=== PATIENT | female | born 1930 | race Caucasian/White ===

== ENCOUNTER 2016-05-21 14:48 | Emergency (ER) | payer OTHER ==
[2016-05-21] MEDS ORDERED: ASPIRIN PO STA (14:51)
[2016-05-21 14:56] VITALS: BP 169/91
--- NOTE | 2016-05-21 15:00 | EKG Report ---
Test Performed on : 05/21/2016 2:50:15 PM Test Reason : CP Blood Pressure : / mmHG Vent. Rate : 069 BPM Atrial Rate : 069 BPM P-R Int : 126 ms QRS Dur : 078 ms QT Int : 384 ms P-R-T Axes : 011 -19 055 degrees QTc Int : 411 ms Normal sinus rhythm. Low voltage QRS Cannot rule out Anterior infarct , age undetermined Abnormal ECG When compared with ECG of 23-SEP-2015 12:06, Minimal criteria for Anterior infarct are now present Nonspecific T wave abnormality, worse in Lateral leads Unconfirmed Result
--- NOTE | 2016-05-21 15:00 | ED EKG INTERP ---
EKG Interpretation - EKG Time of EKG reading by physician:: 14:50 EKG Read and Signed by:: Antoni Teixeira EKG Interpretation (*Must complete 3 of following elements*): Normal Rate: 69 Rhythm: normal sinus rhythm [place]: normal
[2016-05-21 15:59] LABS: MANUAL DIFF NEEDED? NO
[2016-05-21 16:01] LABS: BASO% 0.2 % (0.0-0.8); EOS# 0.09 X1000 (0.0-0.7); EOS% 1.4 % (0.0-10.0); HEMATOCRIT 39.8 % (37.0-47.0); HEMOGLOBIN 12.7 g/dL (12.0-16.0); IMM GRAN# 0.01 X1000 (0.0-0.04); IMM GRAN% 0.2 % (0.0-0.5); LYMPH% 27.4 % (20.5-51.1); MCH 31.1 PG (27-31); MCHC 31.9 g/dL (33-37); MCV 97.3 FL (81-99); MONO# 0.59 X1000 (0.11-0.59); NEUT% 61.8 % (42.2-75.2); PLT 242 X1000 (130-400); RBC 4.09 XMIL (4.2-5.4)
[2016-05-21 16:16] LABS: ALBUMIN 4.2 g/dL (3.5-5.0); CALCIUM 11.1 mg/dL (8.8-10.2); MAGNESIUM 2.2 mg/dL (1.5-2.7); POTASSIUM 3.9 mmol/L (3.5-5.1); TOTAL BILIRUBIN 0.4 mg/dL (0.20-1.00); TOTAL PROTEIN 7.1 g/dL (6.3-8.3)
[2016-05-21 16:20] LABS: INR 0.89 (0.86-1.15); PROTIME 12.4 Seconds (12.1-15.5); PTT PL 29.9 Seconds (22.6-43.9)
--- NOTE | 2016-05-21 17:16 | ED EKG INTERP ---
EKG Interpretation - EKG Time of EKG reading by physician:: 16:56 EKG Read and Signed by:: Antoni Teixeira EKG Interpretation (*Must complete 3 of following elements*): Normal Rate: 64 Rhythm: normal sinus rhythm [place]: normal
[2016-05-21 17:18] LABS: AMYLASE 25 U/L (20-200); LIPASE 25 U/L (13-60)
--- NOTE | 2016-05-21 17:34 | EKG Report ---
Test Performed on : 05/21/2016 4:56:32 PM Test Reason : chest pain Blood Pressure : / mmHG Vent. Rate : 064 BPM Atrial Rate : 064 BPM P-R Int : 148 ms QRS Dur : 078 ms QT Int : 408 ms P-R-T Axes : 075 -27 067 degrees QTc Int : 420 ms Normal sinus rhythm. Low voltage QRS Cannot rule out Anterior infarct (cited on or before 21-MAY-2016) Abnormal ECG When compared with ECG of 21-MAY-2016 14:50, (Unconfirmed) Nonspecific T wave abnormality no longer evident in Lateral leads Unconfirmed Result
--- NOTE | 2016-05-21 18:00 | PROVIDER DOCUMENTATION ---
HPI-Chest Pain - General Chief Complaint: Chest Pain Stated Complaint: CHEST PAINS, THROWING UP Time Seen by Provider: 05/21/16 16:34 Source: patient, family Allergies/Adverse Reactions: Patient Allergies Allergy/AdvReac Type Severity Reaction Status Date / Time Iodinated Contrast Media - Allergy Intermediate ITCHING Verified 05/21/16 14:56 Oral and Home Medications: Home Medication List Medication Instructions Recorded Confirmed Last Taken Type ATORVAstatin [Lipitor] 80 mg PO HS 09/23/15 09/23/15 Unknown History Aspirin [Aspirin EC] 81 mg PO DAILY 09/23/15 09/23/15 Unknown History Cholecalciferol (Vitamin D3) 1,000 unit PO DAILY 09/23/15 09/23/15 Unknown History [Vitamin D3] Cyanocobalamin (Vitamin B-12) 1,000 mcg IM ONCE 09/23/15 09/23/15 09/01/15 History [Cyanocobalamin Injection] Furosemide 40 mg PO DAILY 09/23/15 09/23/15 Unknown History Hydrocodone/Acetaminophen [[place] 1 each PO Q8H PRN PRN 09/23/15 09/23/15 Unknown History 10-325 Tablet] Isosorbide Mononitrate E.r. [Imdur] 60 mg PO QAM 09/23/15 09/23/15 Unknown History Levothyroxine Sodium 112 mcg PO DAILY 09/23/15 09/23/15 Unknown History Loratadine 10 mg PO DAILY 09/23/15 09/23/15 Unknown History Meloxicam 7.5 mg PO DAILY 09/23/15 09/23/15 Unknown History Metformin HCl [Metformin HCl ER] 500 mg PO BID 09/23/15 09/23/15 Unknown History Metoprolol Succinate E.r. [Toprol 25 mg PO DAILY 09/23/15 09/23/15 Unknown History Xl] Metoprolol Succinate E.r. [Toprol 50 mg PO DAILY 09/23/15 09/23/15 Unknown History Xl] Mv, Min Cmb#22/Lut/Om3/Dha/Epa 1 cap PO BID 09/23/15 09/23/15 Unknown History [Tozal Softgel] Nitroglycerin [Nitrostat] 0.4 mg SL PRN PRN 09/23/15 09/23/15 Unknown History Non-Formulary Med 6 mg PO TID 09/23/15 09/23/15 Unknown History Omeprazole 40 mg PO DAILY 09/23/15 09/23/15 Unknown History Ranolazine E.r. [Ranexa] 500 mg PO BID 09/23/15 09/23/15 Unknown History - History of Present Illness-CP Nature of Presenting Problem: 85 year old WF presents with c/o epigastric pain, burning in nature, radiating to the lower abdomen. pt reports the pain started at 1400 today, lasted seconds in duration, then resolved. pt reports the pain is now resolved and has not resumed since that initial episode at 1400. pt reports associated nausea, no vomiting, denies diaphoresis. pt reports she can reproduce the pain with deep inspiration. Location: reports: epigastric Chest Pain Radiation: reports: other (lower abdomen) Quality of Pain: reports: burning Severity in ED: mild Onset/Duration: 1 hour ago Timing: gone now, resolved prior to arrival Context/Activities at Onset: reports: none Modifying Factors: improves with: nothing Associated Symptoms: reports: abdominal pain, nausea, shortness of breath. denies: back pain, diaphoresis, dizziness, edema, fatigue, fever/chills, headache, heartburn, rash, swelling/lump in chest, syncope, vomiting, weakness Nitro Today/Relief: no nitro taken today Aspirin Treatment Today: no aspirin today Prior Chest Pain/Cardiac Workup: reports: cardiac cath, heart attack Similar Symptoms Previously?: Yes Recently Seen Here or By Another Healthcare Provider: No Review of Systems - Adult - REVIEW OF SYSTEMS - ADULT Constitutional: reports: no symptoms reported. denies: chills, fever, [place] Eyes: reports: no symptoms reported. denies: discharge, blurred vision, double vision, redness Ears, Nose, Mouth & Throat: reports: no symptoms reported. denies: ear discharge, ear pain, nose pain, loose teeth, throat pain, throat swelling Cardiovascular: reports: see HPI, chest pain. denies: edema, heart murmur, irregular heart rate, orthopnea, palpitations, poor circulation, PND, syncope Respiratory: reports: no symptoms reported. denies: chronic cough, cough, dyspnea on exertion, hemoptysis, pleurisy, shortness of breath, wheezing Gastrointestinal: reports: see HPI, abdominal pain Genitourinary: reports: no symptoms reported. denies: dysuria, hematuria, urgency Musculoskeletal: reports: no symptoms reported. denies: bone pain, joint pain, joint swelling, neck pain Integumentary: reports: no symptoms reported. denies: hives, itching, rash, skin sores/ulcer Neurological: reports: no symptoms reported Psychiatric: reports: no symptoms reported Endocrine: reports: no symptoms reported Hematologic/Lymphatic: reports: no symptoms reported Allergic/Immunologic: reports: no symptoms reported All Other Systems: Reviewed and Negative Past History - Adult - PAST MEDICAL HISTORY-ADULT Review of Records: reports: Old Records Reviewed, Nursing Assessment Review, Medications Reviewed, Social history reviewed & non-contributory. Major Childhood Illnesses: reports: denies history Cardiovascular: reports: CAD, HTN Respiratory: reports: asthma Gastrointestinal: reports: cancer (colon) Obstetrical/Gynecological: reports: denies history Genitourinary: reports: denies history Musculoskeletal: reports: denies history Neurological: reports: denies history Endocrine/Immune: reports: Diabetes, thyroid disorder (hypothyroid) Other Conditions: reports: denies history - PRIOR SURGERIES/PROCEDURES Surgical/Procedure History: reports: appendectomy, CABG, cholecystectomy, hysterectomy, back/neck (back sx), gastric bypass - IMMUNIZATION STATUS Childhood Immunizations: See Nurse Assessment Flu Vaccine: See Nurse Assessment - FAMILY HISTORY Family History: reviewed, not pertinent - SOCIAL HISTORY Smoking: denies, non-smoker Substance Use: none/never Alcohol Use Frequency: never Physical Exam-General - PHYSICAL EXAM-ADULT Initial Vital Signs Reviewed: Yes - CONSTITUTIONAL General Appearance: appears well, alert, no apparent distress. negative: mild distress, moderate distress, severe distress, lethargic, slow to respond, obtunded, combative - EYES Eyes: pink conjunctivae. negative: conjuctival exudate, pale conjunctivae, photophobia, sclera injected, scleral icterus - HEAD, EARS, NOSE, MOUTH & THROAT HENMT: normocephalic/atraumatic, moist mucous membranes, normal ENT inspection. negative: TMs normal, pharynx normal - NECK Neck: non-tender, full range of motion, supple, normal inspection. negative: C- spine tenderness, limited range of motion, tender lateral, tender midline - RESPIRATORY Respiratory: chest non-tender, lungs clear, normal breath sounds, no pleuratic chest pain, no respiratory distress, no accessory muscle use. negative: respiratory distress, decreased breath sounds, accessory muscle use, crackles, rales, rhonchi, stridor, wheezing - CARDIOVASCULAR Cardiovascular: normal peripheral pulses, regular rate, rhythm, no edema, no gallop - CHEST (BREASTS) Chest/Breast: tenderness (pain with deep inspiration) - GASTROINTESTINAL (ABDOMEN) Abdominal Exam: normal bowel sounds, non tender, soft, no organomegaly. negative: distended, guarding, rigid, rebound, tenderness, hernia, mass, hepatomegaly, spleenomegaly, McBurney's point tenderness, Lepe's sign, obturator sign, prominent aortic pulsations, psoas, Rovsing's sign - GENITOURINARY Female Genitalia/Pelvic Exam: deferred Rectal Exam: deferred Hemoccult Exam: deferred - LYMPHATIC Lymphatic: no adenopathy - MUSCULOSKELETAL Back Exam: normal inspection, no CVA tenderness, no vertebral tenderness. negative: CVA tenderness, decreased range of motion, swelling, vertebral tenderness Extremity: normal range of motion, non-tender, normal gait, normal inspection, no pedal edema, no calf tenderness, normal capillary refill. negative: deformity, erythema, inflammation, joint effusion, pedal edema, slow capillary refill Peripheral Pulses: radial (R): 3+, radial (L): 3+, dorsalis-pedis (R): 3+, dorsalis-pedis (L): 3+ - SKIN Integumentary: normal color, normal turgor, warm/dry - NEUROLOGIC Neurologic: grossly normal, no motor/sensory deficits - PSYCHIATRIC Psych/Mental Status: normal mood/affect, normal thought content, normal thought process, oriented x 3 Progress - PLAN OF CARE/RESULTS Progress/Plan/Lab Results: Laboratory Tests 05/21/16 05/21/16 05/21/16 15:40 15:40 15:40 WBC RBC Hgb Hct MCV MCH MCHC RDW Std Deviation Plt Count MPV Immature Gran % (Auto) Neut % (Auto) Lymph % (Auto) [place] % (Auto) Eos % (Auto) Baso % (Auto) Immature Gran # (Auto) Neut # (Auto) Lymph # (Auto) [place] # (Auto) Eos # (Auto) Baso # (Auto) PT INR APTT (Factor Assay) Sodium 137 Potassium 3.9 Chloride 98 Carbon Dioxide 29 Anion Gap 10 BUN 25 H Creatinine 1.3 H Estimated GFR/1.73 m2 39 BUN/Creatinine Ratio 19 Glucose 124 H Calculated Osmolality 280 Calcium 11.1 H Magnesium 2.2 Total Bilirubin 0.40 AST 19 ALT 17 Alkaline Phosphatase 55 Creatine Kinase 65 Troponin T < 0.010 Emt-[id number]-Wvzksgsapot Pept 486 H Total Protein 7.1 Albumin 4.2 Globulin 3.0 Albumin/Globulin Ratio 1.0 Amylase Lipase 05/21/16 05/21/16 05/21/16 15:40 15:40 16:30 WBC 6.58 RBC 4.09 L Hgb 12.7 Hct 39.8 MCV 97.3 MCH 31.1 H MCHC 31.9 L RDW Std Deviation 14.4 Plt Count 242 MPV 10.0 Immature Gran % (Auto) 0.2 Neut % (Auto) 61.8 Lymph % (Auto) 27.4 [place] % (Auto) 9.0 Eos % (Auto) 1.4 Baso % (Auto) 0.2 Immature Gran # (Auto) 0.01 Neut # (Auto) 4.08 Lymph # (Auto) 1.80 [place] # (Auto) 0.59 Eos # (Auto) 0.09 Baso # (Auto) 0.01 PT 12.4 INR 0.89 APTT (Factor Assay) 29.9 Sodium Potassium Chloride Carbon Dioxide Anion Gap BUN Creatinine Estimated GFR/1.73 m2 BUN/Creatinine Ratio Glucose Calculated Osmolality Calcium Magnesium Total Bilirubin AST ALT Alkaline Phosphatase Creatine Kinase Troponin T Lsx-C-Prvjzgshjir Pept Total Protein Albumin Globulin Albumin/Globulin Ratio Amylase 25 Lipase 25 05/21/16 05/21/16 17:57 17:57 WBC RBC Hgb Hct MCV MCH MCHC RDW Std Deviation Plt Count MPV Immature Gran % (Auto) Neut % (Auto) Lymph % (Auto) [place] % (Auto) Eos % (Auto) Baso % (Auto) Immature Gran # (Auto) Neut # (Auto) Lymph # (Auto) [place] # (Auto) Eos # (Auto) Baso # (Auto) PT INR APTT (Factor Assay) Sodium Potassium Chloride Carbon Dioxide Anion Gap BUN Creatinine Estimated GFR/1.73 m2 BUN/Creatinine Ratio Glucose Calculated Osmolality Calcium Magnesium Total Bilirubin AST ALT Alkaline Phosphatase Creatine Kinase 65 Troponin T < 0.010 Uye-[id number]-Vhgkkzdbpkl Pept Total Protein Albumin Globulin Albumin/Globulin Ratio Amylase Lipase Orders Category Date Time Status Cardiac Monitoring DIRECTED Care 05/21/16 14:51 Active Oxygen Therapy- ED Nursing DIRECTED Care 05/21/16 14:51 Active Saline Loc NOW Care 05/21/16 14:51 Active ABDOMEN FLAT/UPRIGHT [RAD] Stat Exams 05/21/16 18:01 Completed CHEST-2 VIEWS [RAD] Stat Exams 05/21/16 14:51 Completed AMYLASE [CHEM] Stat Lab 05/21/16 16:30 Completed CBC WITH ELECTRONIC DIFF [HEME] Stat Lab 05/21/16 15:40 Completed CK PROFILE [SP CHEM] Stat Lab 05/21/16 15:40 Completed CK PROFILE [SP CHEM] Stat Lab 05/21/16 17:57 Completed COMPREHENSIVE METABOLIC PANEL [CHEM] Stat Lab 05/21/16 15:40 Completed LIPASE [CHEM] Stat Lab 05/21/16 16:30 Completed MAGNESIUM [CHEM] Stat Lab 05/21/16 15:40 Completed PRO B-NATRIURETIC PEPTIDE Stat Lab 05/21/16 15:40 Completed PROTIME WITH INR PL [COAG] Stat Lab 05/21/16 15:[address] [COAG] Stat Lab 05/21/16 15:40 Completed TROPONIN T Stat Lab 05/21/16 15:40 Completed TROPONIN T Stat Lab 05/21/16 17:57 Completed Aspirin Med 05/21/16 14:51 Discontinued 325 mg PO STAT STA Aerosol Treatments Routine Oth 05/21/16 16:00 Completed EKG [EKG] Stat Ther 05/21/16 14:51 Draft EKG [EKG] Stat Ther 05/21/16 16:46 Draft Reviewed case with Dr. Teixeira, agrees with plan of care and dc home. - XRAY 1 XRAY Study: Chest Impression: Normal (per Dr. Teixeira) 2 XRAY Study: Abdomen Impression: Abnormal (constipation.) Departure - Departure Time of Disposition Order: 19:12 DIAGNOSIS: Epigastric pain Constipation Qualifiers: Constipation type: unspecified constipation type Qualified Code(s): K59.00 - Constipation, unspecified Vomiting Qualifiers: Nausea presence: with nausea Disposition: HOME 01 Certified Medical Emergency: Emergent Condition: Stable Additional Instructions: Follow up with your primary care doctor tomorrow as scheduled. Start taking your miralax again for constipation. ED Follow Up Instructions: You have been treated by a care provider in the Emergency Department. These instructions are being provided to you so you can have an understanding of how to care for yourself upon discharge. Upon discharge from the Emergency Department, you are responsible for making arrangements for follow-up care by a physician of your choice. Take all prescribed medications as directed. Return to the Emergency Department immediately for any new or worsening symptoms. You may call the Physician Referral phone number at [phone] to obtain a list of Physicians who are taking new patients. Referrals: Cyril Prescott MD [STAFF PHYSICIAN] - Instructions: Constipation, Adult Attestation - Physician/ KOMAL Attestation Patient care was provided by Advanced Practice Provider:: Yes Advanced Practice Provider:: Iliana Whiteside Advanced Practice Provider documentation review:: The Mid-level provider documentation, treatment plan and medical decision making was reviewed by the physician who agrees with all treatment and medical decision making by the MLP.
--- NOTE | 2016-05-21 18:02 | Diag Imaging Result Document ---
PROCEDURE NAME: CHEST-2 VIEWS - 05/21/2016 CHEST, 2 VIEWS: FINDINGS: Compared to 09/23/2015. Heart size is normal. There are sternal wires from previous surgery again seen. There is mild tortuosity of the thoracic aorta. There is a small granuloma from old granulomatous disease at the left upper lobe which is stable. There are no acute changes identified. There is no consolidation, pleural effusion, or pneumothorax identified. IMPRESSION: No evidence of acute disease.
--- NOTE | 2016-05-21 19:48 | Diag Imaging Result Document ---
PROCEDURE NAME: ABDOMEN FLAT/UPRIGHT - 05/21/2016 FLAT AND UPRIGHT, 2 VIEWS: COMPARISON: Compared to 11/07/2010. There are multiple surgical clips scattered throughout the abdomen. Stool is found throughout the colon. The bowel loops are not dilated. No organomegaly. Moderate atherosclerosis. There are several pelvic calcifications consistent with phleboliths. There is scoliosis with degenerative spine changes. IMPRESSION: Constipation.
== END 2016-05-21 19:39 | disposition home or self-care (01) ==
LOC: P.ED 14:48
DX: R10.13 Epigastric pain (principal); K59.00 Constipation, unspecified; R11.2 Nausea with vomiting, unspecified; R06.02 Shortness of breath; R07.9 Chest pain, unspecified; I25.10 Atherosclerotic heart disease of native coronary artery without angina pectoris; I10 Essential (primary) hypertension; Z85.038 Personal history of other malignant neoplasm of large intestine; Z79.899 Other long term (current) drug therapy; E11.9 Type 2 diabetes mellitus without complications; E03.9 Hypothyroidism, unspecified; Z95.1 Presence of aortocoronary bypass graft; Z98.84 Bariatric surgery status; Z79.82 Long term (current) use of aspirin
CPT/HCPCS: 71020; 74020; 80053; 82150; 82550; 83690; 83735; 83880; 84484; 85025; 85610; 85730; 93005; 94640; 94761; 99284

== ENCOUNTER 2018-06-21 15:21 | Inpatient (IN) ==
[2018-06-21] MEDS ORDERED: ASPIRIN PO ONE (15:59)
--- NOTE | 2018-06-21 16:22 | PROVIDER DOCUMENTATION ---
HPI-Chest Pain - General Chief Complaint: Epigastric Pain Stated Complaint: CHEST PAIN Time Seen by Provider: 06/21/18 15:49 Source: patient Allergies/Adverse Reactions: Patient Allergies Allergy/AdvReac Type Severity Reaction Status Date / Time Iodinated Contrast- Oral and Allergy Intermediate ITCHING Verified 08/15/17 23:24 IV Dye Home Medications: Home Medication List Medication Instructions Recorded Confirmed Last Taken Type Isosorbide Mononitrate E.r. [Imdur] 60 mg PO QAM 09/23/15 02/23/18 Unknown History Levothyroxine Sodium [Synthroid] 88 mcg PO HS 02/23/18 02/23/18 Unknown History Metoprolol Tartrate 25 mg PO BID 02/23/18 02/23/18 Unknown History Pantoprazole Sodium [Protonix] 20 mg PO BID 02/23/18 02/23/18 Unknown History Ranolazine E.r. [Ranexa] 500 mg PO BID 02/23/18 02/23/18 Unknown History Solifenacin Succinate [Vesicare] 10 mg PO HS 02/23/18 02/23/18 Unknown History Acetaminophen [Tylenol] 650 mg PO Q6H PRN PRN tablet 02/28/18 Unknown Rx Lidocaine 5% Patch [Lidoderm] 1 each TOP DAILY patch 02/28/18 Unknown Rx - History of Present Illness-CP Nature of Presenting Problem: 88yof present to ER with c/o CP onset approx midnight. Pt reports some SOB and n/v at onset. Pt denies pain at present. States pain is worse with lying down. Pt poor historian, reports a CABG in 1992. Location: reports: substernal Chest Pain Radiation: reports: back Quality of Pain: reports: sharp, stabbing Onset/Duration: last night Timing: gone now, intermittent Modifying Factors: worse with: lying down Associated Symptoms: reports: back pain, nausea, shortness of breath, vomiting. denies: diaphoresis, fever/chills, syncope Nitro Today/Relief: no nitro taken today Review of Systems - Adult - REVIEW OF SYSTEMS - ADULT Constitutional: reports: no symptoms reported. denies: chills, fever Eyes: reports: no symptoms reported Ears, Nose, Mouth & Throat: reports: no symptoms reported Cardiovascular: reports: see HPI, chest pain, orthopnea. denies: palpitations, syncope Respiratory: reports: see HPI, shortness of breath Gastrointestinal: reports: nausea, vomiting. denies: abdominal pain, diarrhea Genitourinary: reports: no symptoms reported Musculoskeletal: reports: back pain (upper) Integumentary: reports: no symptoms reported Neurological: reports: no symptoms reported Psychiatric: reports: no symptoms reported Endocrine: reports: no symptoms reported Hematologic/Lymphatic: reports: no symptoms reported Allergic/Immunologic: reports: no symptoms reported All Other Systems: Reviewed and Negative Past History - Adult - PAST MEDICAL HISTORY-ADULT Review of Records: reports: Old Records Reviewed, Nursing Assessment Review, Medications Reviewed Major Childhood Illnesses: reports: denies history Cardiovascular: reports: CAD, CHF, HTN, hyperlipidemia Respiratory: reports: asthma, COPD Gastrointestinal: reports: cancer (colon) Obstetrical/Gynecological: reports: denies history Genitourinary: reports: denies history Musculoskeletal: reports: denies history Neurological: reports: denies history Endocrine/Immune: reports: Diabetes, thyroid disorder (hypothyroid) Other Conditions: reports: denies history - PRIOR SURGERIES/PROCEDURES Surgical/Procedure History: reports: appendectomy, CABG, cholecystectomy, hysterectomy, back/neck (back sx), gastric bypass - IMMUNIZATION STATUS Childhood Immunizations: See Nurse Assessment Flu Vaccine: See Nurse Assessment - FAMILY HISTORY Family History: reviewed, not pertinent Physical Exam-General - PHYSICAL EXAM-ADULT Initial Vital Signs Reviewed: Yes - CONSTITUTIONAL General Appearance: alert, no apparent distress - EYES Eyes: PERRL/EOMI, pink conjunctivae - HEAD, EARS, NOSE, MOUTH & THROAT HENMT: moist mucous membranes, normal ENT inspection - NECK Neck: non-tender, full range of motion, supple, normal inspection - RESPIRATORY Respiratory: chest non-tender, lungs clear, normal breath sounds, no pleuratic chest pain, no respiratory distress, no accessory muscle use - CARDIOVASCULAR Cardiovascular: regular rate, rhythm, no edema - GASTROINTESTINAL (ABDOMEN) Abdominal Exam: normal bowel sounds, non tender, soft. negative: distended, guarding, rigid, rebound - LYMPHATIC Lymphatic: no adenopathy - MUSCULOSKELETAL Back Exam: normal inspection, no CVA tenderness, no vertebral tenderness Extremity: normal range of motion, normal inspection, normal capillary refill - SKIN Integumentary: normal color, warm/dry - NEUROLOGIC Neurologic: grossly normal, no motor/sensory deficits - PSYCHIATRIC Psych/Mental Status: normal mood/affect - HEART Score HEART Score: History: Moderately Suspicious HEART Score: ECG: Normal HEART Score: Age: > or = 65 Years HEART Score: Risk Factors for Atherosclerotic Disease: > or = 3 Risk Factors or History of Atherosclerotic Disease HEART Score: Troponin: < or = Normal Limit Total HEART Score:: 5 Progress - PLAN OF CARE/RESULTS Progress/Plan/Lab Results: Vital Signs - 8 hr 06/21/18 15:31 Temperature 99.0 F Pulse Rate 66 Respiratory Rate 19 Blood Pressure 96/68 O2 Sat by Pulse Oximetry 98 Laboratory Results - last 24 hr 06/21/18 06/21/18 16:15 16:15 WBC 7.61 RBC 3.70 L Hgb 11.9 L Hct 36.6 L MCV 98.9 MCH 32.2 H MCHC 32.5 L RDW Std Deviation 13.8 Plt Count 195 MPV 9.9 Immature Gran % (Auto) 0.1 Neut % (Auto) 65.0 Lymph % (Auto) 22.2 [place] % (Auto) 10.4 H Eos % (Auto) 2.0 Baso % (Auto) 0.3 Immature Gran # (Auto) 0.01 Neut # (Auto) 4.95 Lymph # (Auto) 1.69 [place] # (Auto) 0.79 H Eos # (Auto) 0.15 Baso # (Auto) 0.02 PT 13.1 INR 0.94 PTT (Actin FS) 30.8 Orders Category Date Time Status Nursing- Obtain EKG ONCE Care 06/21/18 15:50 Active CHEST-2 VIEWS [RAD] Stat Exams 06/21/18 15:50 Ordered CBC WITH DIFF [HEME] Stat Lab 06/21/18 16:15 Completed COMPREHENSIVE METABOLIC PANEL [CHEM] Stat Lab 06/21/18 16:15 Received D-DIMER [COAG] Stat Lab 06/21/18 16:15 Results LIPASE [CHEM] Stat Lab 06/21/18 16:15 Received PRO B-NATRIURETIC PEPTIDE Stat Lab 06/21/18 16:15 Received PROTIME WITH INR [COAG] Stat Lab 06/21/18 16:15 Results PTT [COAG] Stat Lab 06/21/18 16:15 Results TROPONIN T Stat Lab 06/21/18 16:15 Received Aspirin Med 06/21/18 15:59 Discontinued 325 mg PO NOW ONE Famotidine [Pepcid] Med 06/21/18 16:24 Discontinued 20 mg IV NOW ONE Lido/Brower Alk/Al&mg Hydrox [G.i. Cocktail] Med 06/21/18 16:24 Discontinued 30 ml PO NOW ONE Sodium Chloride 0.9% Med 06/21/18 16:24 Discontinued 5 - 10 ml INJ NOW ONE EKG [EKG] Stat Ther 06/21/18 15:50 Ordered Result Diagrams: 06/21/18 16:15 06/21/18 16:15 - EKG 1 Time of EKG reading by physician:: 15:27 EKG Read and Signed by:: Tom Lund EKG Interpretation (*Must complete 3 of following elements*): Abnormal Rate: 66 Rhythm: NSR Comments: left axis deviation - CONSULTS/PCP/HOSPITALIST Notification #1 *Consult/PCP/Hospitalist*: MD [place] Time Discussed: 17:50 Reason/Comments: CP & heart score 5 Consult Disposition: Admit - CHANGE OF SHIFT REPORT (ED Provider) 1 Report Given and Care Transferred to:: LELAND Lopez Time of Transfer: 17:00 Items Pending: Labs, XRAY Results (CXR) Departure - Departure Date of Disposition Decision: 06/21/18 Time of Disposition Decision: 17:50 DIAGNOSIS: Chest wall pain Disposition: ADMITTED INPATIENT 09 Certified Medical Emergency: Emergent Condition: Stable - Critical Care Note This patient required my direct & personal management of CC.: No Attestation - Physician/ KOMAL Attestation Patient care was provided by Advanced Practice Provider:: Yes Advanced Practice Provider:: Cameron Oakley Advanced Practice Provider documentation review:: The Mid-level provider documentation, treatment plan and medical decision making was reviewed by the physician who agrees with all treatment and medical decision making by the MLP. The physician spent face to face time with patient:: No Advanced Practice Provider documentation review:: Supervising physician onsite and consulted in the evaluation and care of this patient. The physician did not have a face to face encounter with the patient.
[2018-06-21] MEDS ORDERED: PEPCID IV ONE (16:24)
[2018-06-21] MEDS ORDERED: SODIUM CHLORIDE 0.9% INJ ONE (16:24)
[2018-06-21] MEDS ORDERED: G.I. COCKTAIL PO ONE (16:24)
[2018-06-21 16:28] LABS: BASO# 0.02 X1000 (0.0-0.2); BASO% 0.3 % (0.0-0.8); EOS# 0.15 X1000 (0.0-0.7); HEMATOCRIT 36.6 % (37.0-47.0); HEMOGLOBIN 11.9 g/dL (12.0-16.0); IMM GRAN# 0.01 X1000 (0.0-0.04); IMM GRAN% 0.1 % (0.0-0.5); LYMPH# 1.69 X1000 (1.2-3.4); LYMPH% 22.2 % (20.5-51.1); MCH 32.2 PG (27-31); MCHC 32.5 g/dL (33-37); MCV 98.9 FL (81-99); MONO# 0.79 X1000 (0.11-0.59); MONO% 10.4 % (1.7-9.3); MPV 9.9 FL (7.4-10.4); NEUT# 4.95 X1000 (1.4-6.5); PLT 195 X1000 (130-400); RDW 13.8 % (11.5-14.5); WBC 7.61 X1000 (4.8-10.8)
[2018-06-21 16:46] LABS: INR 0.94; PROTIME 13.1 Seconds (11.0-16.0)
[2018-06-21 16:47] LABS: PTT 30.8 Seconds (22.3-41.8)
[2018-06-21 16:55] LABS: ALBUMIN 3.3 g/dL (3.5-5.0); CALCIUM 8.8 mg/dL (8.8-10.2); CREATININE 1.2 mg/dL (0.5-0.9); TOTAL BILIRUBIN 0.5 mg/dL (0.20-1.00); TOTAL PROTEIN 6.4 g/dL (6.3-8.3)
--- NOTE | 2018-06-21 16:57 | EKG Report ---
Test Performed on : 06/21/2018 3:27:43 PM Test Reason : CP Blood Pressure : / mmHG Vent. Rate : 066 BPM Atrial Rate : 066 BPM P-R Int : 128 ms QRS Dur : 082 ms QT Int : 414 ms P-R-T Axes : 001 -30 041 degrees QTc Int : 434 ms Normal sinus rhythm. Left axis deviation Possible Anterior infarct (cited on or before 16-AUG-2017) Abnormal ECG When compared with ECG of 23-FEB-2018 17:22, Nonspecific T wave abnormality, improved in Inferior leads Nonspecific T wave abnormality no longer evident in Anterior leads Unconfirmed Result
--- NOTE | 2018-06-21 17:23 | Diag Imaging Result Doc PS360 ---
EXAM: CHEST-2 VIEWS - 06/21/2018 HISTORY: cp TECHNIQUE: Chest two views COMPARISON: 02/26/2018 portable chest FINDINGS: Heart size appears within normal limits. There are sternal wires from previous surgery again seen. Inspiration is mildly shallow. There are stable left upper lobe granuloma from old granulomatous disease. There is mild linear atelectasis or scarring at the left base. The lungs otherwise appear clear. There is no pleural effusion or pneumothorax identified. IMPRESSION: Mild linear atelectasis or scarring at left base. No other evidence of acute disease. Electronically signed by Tramaine Leonardo 06/21/2018 5:20 PM
[2018-06-21 17:37] LABS: D-DIMER 2.31 ug/mLFEU (0.0-0.52)
--- NOTE | 2018-06-21 20:15 | HISTORY AND PHYSICAL ---
CHIEF COMPLAINT: Chest pain. HISTORY OF PRESENT ILLNESS: Briefly, this is an 88-year-old female. She looks well. I saw her in February, about 4 months ago. She was there for pneumonia. She also had some encephalopathy, although today it does not look that way. In any case, she has CAD, status post CABG, but her CABG was in 1992. I think she has had stents. She comes in complaining of chest pain, kind of radiating across her chest, sharp, intermittently painful. She has also had nausea and vomiting. Her blood pressure is also elevated, but it was initially on the low side. She is afebrile. Pain is dissimilar to previous heart attacks. She had an echocardiogram done over a year ago, which showed an EF of 58% and no major other pathology. Her workup in the ER really was unremarkable. EKG showed LAD and possible anterior infarct, nonspecific changes. She was admitted for treatment. She was given GI cocktail and Pepcid, and seems to have improved somewhat. She had a cardiac catheterization in 2014, which I think showed severe coronary artery disease and recommended a second opinion from [place], so I do not know if she has disease that may not be amenable to treatment. PAST MEDICAL HISTORY: 1. Again, CAD, status post CABG. 2. Hypothyroidism. 3. Chronic angina. 4. Arthritis. 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 6. Diabetes. 7. History of colon cancer. PAST SURGICAL HISTORY: 1. Appendectomy. 2. Cholecystectomy. 3. Hysterectomy. 4. Gastric bypass. 5. CABG and stents, presumably partial colectomy. ALLERGIES: Iodine. SOCIAL HISTORY: She does not smoke currently. No alcohol. She lives with family. FAMILY HISTORY: History she states her 7 children all have heart disease. One daughter had heart disease in her 30s, if that is to be believed, but she is very hard of hearing so there is some type of limitation there. REVIEW OF SYSTEMS: Otherwise negative on 10-point review of systems. PHYSICAL EXAMINATION: VITAL SIGNS: Blood pressure 180/94, heart rate 66, respiratory rate 17, temperature 99 degrees. GENERAL: Well-developed female, pleasant, in no acute distress. HEENT: Head exam was normocephalic, atraumatic. Eye exam: Pupils equal, round and reactive to light. Extraocular movements were intact. Ear, nose and throat exam: She had moist mucous membranes. She was edentulous. NECK: Supple. CARDIOVASCULAR: Regular rate and rhythm. No murmurs, gallops or rubs. PULMONARY: Bilateral breath sounds. No wheezes, no rales. GASTROINTESTINAL: Soft, nontender, nondistended. Bowel sounds are positive. NEUROLOGIC: Nonfocal. MUSCULOSKELETAL: Strength 4/5 in all 4 extremities. LABORATORY DATA: She had normal white count, hemoglobin and hematocrit 11 and 36. D-dimer is elevated 2.31. Creatinine of 1.2. ASSESSMENT AND PLAN: An 88-year-old female with history of coronary artery disease, status post coronary artery bypass graft, presenting with atypical chest pain and nausea. 1. Chest pain. We will do serial cardiac enzymes, monitor on telemetry, get echocardiogram. Get Cardiology opinion about noninvasive versus catheterization, or she may just be medically managed after they review records. She has an elevated D-dimer which will prompt the inevitable D-dimer workup. I think it is unlikely she has pulmonary embolism. She is allergic to iodine, so we will do VQ scan and venous Doppler, and monitor that. 2. Diabetes. We will continue to follow blood sugars. Check an A1c. Continue sliding scale. 3. Nausea and vomiting. We will continue to follow closely and work on symptomatic treatment. Further imaging based on her clinical presentation. I am not sure at this point if this is not related somehow to her other issues. 4. Disposition pending her clinical status. We will continue to follow. She also has a mildly elevated proBNP; however, I do not think her chest x-ray showed any acute air-space disease. cc: Juancho Barahona MD
[2018-06-21] MEDS ORDERED: NS 1,000 ML IV ONE (21:48)
[2018-06-21] MEDS ORDERED: TYLENOL PO PRN (21:48)
[2018-06-21] MEDS: HUMULIN R (PARKWAY) SUBQ SCH (22:34)
[2018-06-21] MEDS: ZOFRAN IV PRN (22:46)
[2018-06-22 01:29] LABS: BILIRUBIN URINE NEGATIVE (NEGATIVE); BLOOD URINE NEGATIVE (NEGATIVE); CLARITY SL. CLOUDY (CLEAR); COLOR YELLOW; GLUCOSE URINE NEGATIVE (NEGATIVE); KETONE URINE NEGATIVE (NEGATIVE); LEUKOCYTES URINE 2+ (NEGATIVE); NITRITE URINE NEGATIVE (NEGATIVE); PROTEIN URINE TRACE mg/dL (NEGATIVE); URINE BACTERIA 2+ /HFP; URINE EPITHELIAL CELLS <10 /HPF (<10); URINE RBC <10 /HPF (<10); URINE SOURCE CLEAN CATCH; UROBILINOGEN URINE NORMAL
[2018-06-22 02:57] LABS: BASO# 0.02 X1000 (0.0-0.2); BASO% 0.3 % (0.0-0.8); EOS# 0.11 X1000 (0.0-0.7); EOS% 1.7 % (0.0-10.0); HEMATOCRIT 36.6 % (37.0-47.0); HEMOGLOBIN 11.8 g/dL (12.0-16.0); LYMPH# 1.48 X1000 (1.2-3.4); LYMPH% 22.6 % (20.5-51.1); MCH 32.1 PG (27-31); MCHC 32.2 g/dL (33-37); MCV 99.5 FL (81-99); MONO# 0.79 X1000 (0.11-0.59); MONO% 12.1 % (1.7-9.3); MPV 9.8 FL (7.4-10.4); NEUT# 4.14 X1000 (1.4-6.5); NEUT% 63.3 % (42.2-75.2); PLT 174 X1000 (130-400); RBC 3.68 XMIL (4.2-5.4); RDW 13.7 % (11.5-14.5); WBC 6.54 X1000 (4.8-10.8)
[2018-06-22 03:27] LABS: CALCIUM 8.8 mg/dL (8.8-10.2); CREATININE 1.1 mg/dL (0.5-0.9); POTASSIUM 4.3 mmol/L (3.5-5.1)
[2018-06-22] MEDS ORDERED: CALMOSEPTINE OINTMENT TOP PRN (05:28)
[2018-06-22] MEDS: HUMULIN R (PARKWAY) SUBQ SCH ×4 (06:26→22:23)
[2018-06-22] MEDS ORDERED: STERILE WATER INJ. INJ PRN (06:43)
[2018-06-22] MEDS: GEODON IM PRN ×2 (06:53→20:20)
--- NOTE | 2018-06-22 09:46 | EKG Report ---
Test Performed on : 06/21/2018 6:48:15 PM Test Reason : 2 HOUR REPEAT Blood Pressure : / mmHG Vent. Rate : 064 BPM Atrial Rate : 064 BPM P-R Int : 150 ms QRS Dur : 082 ms QT Int : 428 ms P-R-T Axes : 073 -27 048 degrees QTc Int : 441 ms Normal sinus rhythm. Low voltage QRS Cannot rule out Anterior infarct (cited on or before 16-AUG-2017) Abnormal ECG When compared with ECG of 21-JUN-2018 15:27, (Unconfirmed) No significant change was found Unconfirmed Result
--- NOTE | 2018-06-22 12:00 | Diag Imaging Result Doc PS360 ---
EXAM: LUNG SCAN / VQ HISTORY: elevated d-dimer chest pain TECHNIQUE: Ventilatory images obtained 39 mCi technetium DTPA. Perfusion images following 6.1 mCi technetium MAA IV. COMPARISON: Chest radiograph 06/21/2018 FINDINGS: There are matched non-segmental ventilatory and perfusion abnormalities right lung. No peripheral wedge-shaped segmental perfusion abnormalities are appreciated. No V/Q mismatches. IMPRESSION: Low probability of acute pulmonary embolism. Electronically signed by Anisha Maria 06/22/2018 11:58 AM
--- NOTE | 2018-06-22 14:29 | ECHO REPORT ---
ORDER DATE: 06/22/2018 INDICATION: Swelling, coronary artery disease. FINDINGS: 1. Right atrium appears normal in size at 2.7 cm. 2. Mild tricuspid regurgitation. RV systolic pressure of 54. 3. Normal RV size and systolic function. 4. No significant pulmonic insufficiency. 5. Moderate left atrial enlargement with a volume index of 35. 6. No mitral valve prolapse. There is heavy mitral annular calcification and thickening of the posterior mitral leaflet with no evidence of significant mitral stenosis. There is mild mitral regurgitation. 7. Normal LV size, end-diastolic dimension of 3.8. Normal wall thicknesses with a posterior and interventricular septal wall thickness 1.1 cm each. Normal LV systolic function. Estimated EF of 65% with normal wall motion. 8. Aortic valve appears trileaflet and somewhat calcified. Suggestion of mild aortic stenosis with a peak gradient of 29, mean of 15 and a valve area of 1.4 cm2 by the continuity equation. There is no evidence of aortic insufficiency. 9. Aorta appears normal in visualized segments. 10. No pericardial effusion seen. cc: MD Juancho Galdamez MD
--- NOTE | 2018-06-22 17:02 | PROGRESS NOTE ---
DATE: 06/22/2018 SUBJECTIVE: This morning she started getting confused, agitated. She started tearing everything off, trying to hit the staff. She has done this before, at least at her last admission when she had encephalopathy. When I saw her last night, though, I really did not appreciate any confusion, but in any case, I cannot get much out of her now. She just curls up and refuses to talk. She had encephalopathy previously. When I saw her, she was very hard of hearing, but no major issues, but this last admission, I guess she does have baseline confusion, so that is not a big change for her, then. She had sepsis and acute toxic encephalopathy. She also had some withdrawal apparently, but she does have some early dementia. She has had pelvic fractures. OBJECTIVE DATA: Vital Signs: Blood pressure is 116/48, heart rate of 85, respiratory rate 18, temperature 97.8 degrees. Cardiovascular: Regular rate and rhythm. Pulmonary: Bilateral breath sounds clear to auscultation. Gastrointestinal: Soft, nontender, nondistended. Bowel sounds are positive. Neurological: Limited, but there is no focal weakness. Cranial nerves 2-12 were grossly intact. DIAGNOSTIC STUDIES: Her white count 6, hemoglobin 11, hematocrit 36, platelets 174,000. Her creatinine is 1.1. Her urine showed possibly some early UTI changes, 10-20 white blood cells. Troponins were negative. V/Q was negative. Her echo was EF of 65%, some mild aortic stenosis. PROBLEM LIST: 1. Acute encephalopathy, which I think is probably related to underlying dementia, for which I do not think she is on any chronic medications for and there may be an up or down issue with her, especially with change of location or other acute stressors. 2. Chest pain. She has ruled out. No more events. V/Q DVT workup is negative. I have consulted Cardiology, but they have not seen her but they are probably not going to get very much out of her at this point. I am not sure how aggressive we need to be with likely her significant degree of dementia, and we may need to do medical management. She has been down this path before, and that has been recommended before. I am going to continue aspirin, though I do not see that she is on aspirin. DISPOSITION: If we do not get a clear etiology, we may have to consider getting a Geriatric Psychiatric evaluation for progressive dementia. cc: Juancho Barahona MD MTDD
--- NOTE | 2018-06-22 17:48 | Extremity Venous Study ---
EXAM: Venous U/S Bilateral Legs 06/22/2018 HISTORY: swelling TECHNIQUE: Compression venous ultrasound of the lower extremities with color Doppler flow COMMENT: The deep veins of the lower extremities are compressible and demonstrate normal color Doppler flow with augmentation. There is no evidence of superficial venous thrombosis or abnormal fluid collections. IMPRESSION: No evidence of deep venous thrombosis. Electronically signed by Mal Rhodes 06/22/2018 5:46 PM
--- NOTE | 2018-06-22 18:05 | Diag Imaging Result Doc PS360 ---
EXAM: CT HEAD W/O CONTRAST 06/22/2018 HISTORY: encephalopathy TECHNIQUE: This exam was performed using automated exposure control, adjustment of mA or kV according to patient size, and/or use of iterative reconstruction technique. COMMENT: There are calcifications in the vertebral and internal carotid arteries bilaterally. There are patchy lucencies in the periventricular white matter bilaterally particularly in the left frontal lobe. There is also abnormal lucency in the external capsule on the left side. There is no evidence of bleed, mass effect, or abnormal extra-axial fluid collection. Compared to 02/23/2018 there has been no significant change in the appearance of the brain. The paranasal sinuses are clear. The calvarium is intact. IMPRESSION: Chronic ischemic changes. No evidence of acute disease. Electronically signed by Mal Rhodes 06/22/2018 6:02 PM
--- NOTE | 2018-06-22 18:29 | Diag Imaging Result Doc PS360 ---
EXAM: ABDOMEN FLAT/UPRIGHT 06/22/2018 HISTORY: pain TECHNIQUE: Flat and upright abdomen COMMENT: There is a large amount of stool in the colon. There are numerous surgical clips in the upper abdomen. The aorta is densely calcified and slightly distended in its midportion measuring at least 3.1 cm in diameter. There is osteopenia of the regional skeleton and rotoscoliosis of the lumbar spine with convexity to the left. IMPRESSION: Constipation. Electronically signed by Mal Rhodes 06/22/2018 6:27 PM
[2018-06-22] MEDS: ASPIRIN EC PO SCH (18:52)
[2018-06-22] MEDS: LOPRESSOR PO SCH (20:21)
[2018-06-22] MEDS: VESICARE PO SCH (20:21)
[2018-06-22] MEDS: RISPERDAL PO SCH (20:22)
[2018-06-22] MEDS ORDERED: PROTONIX PO SCH (21:00)
[2018-06-22] MEDS ORDERED: RANEXA PO SCH (21:00)
[2018-06-22] MEDS: ZOFRAN IV PRN (22:22)
--- NOTE | 2018-06-22 22:47 | CONSULTATION ---
DATE OF CONSULTATION: 06/22/2018 IMPRESSION: 1. Episodic chest discomfort with predominantly atypical features for myocardial ischemia. 2. Atherosclerotic coronary disease. 3. Status post coronary bypass graft in 1992. 4. Last cardiac catheterization study in 2014 dictated continued medical management. The patient had subtotal occlusion of dominant right coronary artery, occluded left anterior descending coronary, and small left circumflex coronary system. The left internal mammary artery graft to left anterior descending artery was patent. The saphenous vein graft to the distal right coronary artery was significantly diseased and had already been stented in the past. Left ventricular ejection fraction normal. 5. Some element of dementia evident given patient's confusion when I see her. 6. Diabetes mellitus. RECOMMENDATIONS: 1. Favor continued medical management of patient's coronary atherosclerosis. 2. Increase Ranexa to 1000 mg p.o. b.i.d. HISTORY: This 88-year-old white female with past history of previous coronary bypass grafting in 1992, previous angioplasty/stenting of saphenous vein graft to the right coronary artery, type 2 diabetes mellitus and memory difficulties was admitted because of recurrent chest discomfort. She describes her chest discomfort vaguely. She relates that discomfort is provoked by drinking water. She also notes some chest discomfort when she lies on her left side. She is persistently vague in describing her chest discomfort. She had cardiac catheterization in 2015, which dictated continued medical management. PAST MEDICAL HISTORY: 1. Atherosclerotic coronary disease as outlined above. 2. Hypothyroidism. 3. Diabetes mellitus type 2. 4. Degenerative joint disease. 5. Hearing loss. 6. Colon cancer. Patient is status post previous partial colectomy. PAST SURGICAL HISTORY: Also includes appendectomy, cholecystectomy, hysterectomy and gastric bypass procedure. ALLERGIES: She is allergic or intolerant to iodine. MEDICATIONS PRIOR TO ADMISSION: As listed. SOCIAL HISTORY: She lives with family. She does not currently smoke. She does not use alcohol. FAMILY HISTORY: Negative for premature coronary disease. REVIEW OF SYSTEMS: Pulmonary: Negative. Gastrointestinal: Noteworthy for some nausea but otherwise negative. Constitutional: Negative. Remainder of review of systems negative/noncontributory with 14 total systems reviewed. PHYSICAL EXAMINATION: General: This is an overweight, elderly white female in no distress on room air. Vital signs: Blood pressure 140/67, heart rate 90, oxygen saturation 99% on room air. HEENT Exam: Extraocular movements appear intact. Mucous membranes moist. Neck: Supple without jugular venous distention. Chest: Clear to auscultation. Cardiac Exam: Reveals a regular rate and rhythm with a grade 2/6 systolic murmur at the right upper sternal border. No gallop could be appreciated. Abdomen: Soft. Bowel sounds are normal. Extremities: Without edema. Neurologic Exam: Reveals her to be alert to person and place but not to time or year. Speech is fluent. She moves all 4 extremities equally well. PERTINENT DATA: Twelve-lead EKG demonstrates sinus rhythm and low voltage QRS. Echocardiography demonstrates normal left ventricular ejection fraction and evidence of mild aortic stenosis. LABORATORY DATA: Includes a white blood cell count of 6.54, hematocrit 36.6, hemoglobin 11.8, platelet count 174,000, sodium 143, potassium 4.3, chloride 106, carbon dioxide 28, BUN 17, creatinine 1.1. Initial troponin less than 0.01. Followup troponin less than 0.01. Initial CPK 50 followup CPK 50. cc: Rudy Garcia MD
[2018-06-23] MEDS: HUMULIN R (PARKWAY) SUBQ SCH ×4 (06:51→21:00)
[2018-06-23] MEDS: SYNTHROID PO SCH (06:55)
[2018-06-23] MEDS ORDERED: PROTONIX PO SCH (07:00)
[2018-06-23 07:53] LABS: BASO# 0.01 X1000 (0.0-0.2); BASO% 0.2 % (0.0-0.8); EOS# 0.09 X1000 (0.0-0.7); EOS% 1.5 % (0.0-10.0); HEMOGLOBIN 12.4 g/dL (12.0-16.0); IMM GRAN# 0.01 X1000 (0.0-0.04); IMM GRAN% 0.2 % (0.0-0.5); LYMPH# 1.28 X1000 (1.2-3.4); LYMPH% 21.9 % (20.5-51.1); MCH 31.5 PG (27-31); MCHC 31.8 g/dL (33-37); MONO# 0.57 X1000 (0.11-0.59); MONO% 9.7 % (1.7-9.3); MPV 10.5 FL (7.4-10.4); NEUT# 3.89 X1000 (1.4-6.5); NEUT% 66.5 % (42.2-75.2); PLT 192 X1000 (130-400); RBC 3.94 XMIL (4.2-5.4); RDW 13.4 % (11.5-14.5); WBC 5.85 X1000 (4.8-10.8)
[2018-06-23] MEDS: LASIX PO SCH (07:59)
[2018-06-23] MEDS: LOPRESSOR PO SCH ×2 (07:59→21:00)
[2018-06-23] MEDS: ASPIRIN EC PO SCH (07:59)
[2018-06-23] MEDS: IMDUR PO SCH (07:59)
[2018-06-23] MEDS: RANEXA PO SCH ×2 (07:59→21:01)
[2018-06-23 08:13] LABS: ALBUMIN 3.4 g/dL (3.5-5.0); CALCIUM 9.2 mg/dL (8.8-10.2); DIRECT BILIRUBIN 0.2 mg/dL (0.00-0.20); POTASSIUM 4.1 mmol/L (3.5-5.1); TOTAL BILIRUBIN 0.7 mg/dL (0.20-1.00); TOTAL PROTEIN 6.9 g/dL (6.3-8.3)
[2018-06-23 08:44] LABS: TSH 3.91 uIUmL (0.27-4.20)
[2018-06-23] MEDS: NORCO-10 PO PRN (10:34)
[2018-06-23] MEDS: RISPERDAL PO SCH ×2 (10:34→21:01)
[2018-06-23] MEDS: ZOFRAN IV PRN (12:08)
[2018-06-23 15:43] LABS: C REACTIVE PROT QUANT 14.92 mg/L (0.00-5.00)
[2018-06-23] MEDS ORDERED: NS 1,000 ML IV ONE (18:06)
--- NOTE | 2018-06-23 18:30 | PROGRESS NOTE ---
DATE: 06/23/2018 SUBJECTIVE: The patient has no major complaints. OBJECTIVE: Vital Signs: Blood pressure is 145/72, heart rate 72, respiratory rate 20, temperature 98.2. Cardiovascular: Regular rate and rhythm. Pulmonary: Bilateral breath sounds, clear to auscultation. GI: Soft, nontender, nondistended. Bowel sounds are positive. LABORATORY DATA: White count is 5. PROBLEM LIST: 1. Chest pain. Workup has been negative. Dr. Garcia has evaluated the patient and just recommended medical management. Increase the Ranexa. 2. Nausea, vomiting with really unclear diagnosis. We will pursue a CT of the abdomen. That is the only thing that has not been looked at. She is on Protonix already, although I think we will probably increase that to 40. She is on just everything. Urinalysis has been negative, and lipase and liver enzymes. We will repeat her comprehensive metabolic panel tomorrow, though it has been negative. 3. Dementia. She is better today, but very agitated. I did have [facility] evaluate her. I am still waiting to hear on their input, but nothing there. 4. She is very constipated, so we will work on trying to get that remedied. cc: Juancho Barahona MD
[2018-06-23] MEDS ORDERED: PREDNISONE PO ONE ×2 (18:51→19:58)
[2018-06-23] MEDS ORDERED: BENADRYL PO ONE ×3 (18:51→19:57)
[2018-06-23] MEDS ORDERED: ROCEPHIN 1 GM in NS 50 ML IV SCH (19:00)
[2018-06-23] MEDS: MIRALAX PO SCH (19:04)
[2018-06-23 19:22] LABS: ALBUMIN 3.3 g/dL (3.5-5.0); CREATININE 1.2 mg/dL (0.5-0.9); POTASSIUM 4.9 mmol/L (3.5-5.1); TOTAL BILIRUBIN 0.7 mg/dL (0.20-1.00); TOTAL PROTEIN 6.2 g/dL (6.3-8.3)
[2018-06-23] MEDS ORDERED: PEPCID PO ONE (19:59)
[2018-06-23] MEDS ORDERED: PREDNISONE PO SCH (21:00)
[2018-06-23] MEDS: LACTULOSE PO SCH (21:00)
[2018-06-23] MEDS: PROTONIX PO SCH (21:01)
[2018-06-23] MEDS: VESICARE PO SCH (21:01)
[2018-06-24] MEDS ORDERED: BENADRYL PO ONE (06:00)
[2018-06-24] MEDS: PEPCID PO SCH ×2 (06:38→13:13)
[2018-06-24] MEDS: PROTONIX PO SCH (06:39)
[2018-06-24] MEDS: SYNTHROID PO SCH (06:39)
[2018-06-24] MEDS ORDERED: PREDNISONE PO ONE (07:00)
[2018-06-24] MEDS: HUMULIN R (PARKWAY) SUBQ SCH (07:40)
[2018-06-24 08:41] VITALS: BP 138/57
--- NOTE | 2018-06-24 11:32 | Diag Imaging Result Doc PS360 ---
EXAM: CT ABD/PELVIS W/ORAL CONT ONLY 06/24/2018 HISTORY: n/v TECHNIQUE: This exam was performed using automated exposure control, adjustment of mA or kV according to patient size, and/or use of iterative reconstruction technique. COMMENT: There is platelike atelectasis in both lower lobes particularly the left lower lobe. This is worse than on the previous study of 05/22/2016. There is some apparent contrast in the stomach and small bowel but this has not yet reached the ileocecal valve. There is a fair amount of gas and stool in the colon. There are extensive atherosclerotic calcifications in the aorta and its branches. There is slight dilatation of the infrarenal abdominal aorta to a maximum AP diameter of 2.8 cm. There is no evidence of hydronephrosis or stones in the kidneys. There are apparent cortical cysts present in the left kidney which were also present at the time the previous study. The degree of constipation is similar to the previous examination. Pelvis: There are no abnormal fluid collections. The urinary bladder is not distended. There has been internal fixation of the left proximal femur which was not the case at the time the previous study. There are healing fractures of the inferior pubic ramus, the superior pubic ramus on the left and there are apparent bilateral sacral insufficiency fractures none of which were present at the time the previous study. There are degenerative disc changes in the lumbar spine and scoliosis with convexity to the left which was present previously. IMPRESSION: 1. Worsened basilar atelectasis. 2. Stable abdominal aortic aneurysm. 3. Constipation. 4. Osteoporosis with fractures in the left pubic rami and bilateral sacral brittany, and fracture of the proximal left femur status post internal fixation. Electronically signed by Mal Rhodes 06/24/2018 11:30 AM
[2018-06-24] MEDS: MIRALAX PO SCH (13:12)
[2018-06-24] MEDS: LACTULOSE PO SCH (13:12)
[2018-06-24] MEDS: RANEXA PO SCH (13:12)
[2018-06-24] MEDS: IMDUR PO SCH (13:13)
[2018-06-24] MEDS: NORCO-10 PO PRN (13:13)
[2018-06-24] MEDS: LASIX PO SCH (13:13)
[2018-06-24] MEDS: RISPERDAL PO SCH (13:14)
[2018-06-24] MEDS: ASPIRIN EC PO SCH (13:14)
[2018-06-24] MEDS: LOPRESSOR PO SCH (13:14)
--- NOTE | 2018-06-24 15:49 | DISCHARGE SUMMARY ---
ADMISSION DATE: 06/22/2018 DISCHARGE DATE: 06/24/2018 DISCHARGE DIAGNOSES: 1. Vascular dementia, I think. 2. Constipation, possibly related to chronic pain medications. 3. Chest pain, atypical, with known coronary artery disease. CONSULTATIONS: Cardiology. HISTORY AND HOSPITAL COURSE: Briefly, this is an 88-year-old female with CAD status post CABG who came in for chest pain. Cardiology was consulted. She had a D-dimer. She had a V/Q and Dopplers which were negative. She is very hard of hearing and she has had issues with encephalopathy before. Her family reports she does have dementia. However, she started having agitation the next day. She required Geodon. She was combative and very agitated. Head CT was negative. Abdominal film showed constipation, which she had some nausea, vomiting. I did pursue a [facility] evaluation and a cardiac evaluation. Dr. Garcia recommended medical management. EF was normal. He increased her Ranexa 1 g b.i.d. She had no further chest pain. On the she did have some vomiting, but she was tolerating p.o. without difficulty. No labs were remarkable. I did go ahead and pursue a CT scan which we did without IV contrast. She had some atelectasis and constipation and osteoporosis and fractures but I do not think those were acute. In any case, I encouraged the family to consider [facility] evaluation and they did recommend inpatient but the family was very adamant, in fact a little upset about even any evaluation. Her son felt that she had a UTI, which her urine on admission was abnormal. She did not describe symptoms per se. Ten to 20 white blood cells, really that is it, 2+ bacteria, no nitrite, but her urine culture was negative. So, there was no white count. There was no fever. She was confused, but I am not sure how far off baseline she was. Anyway, they decided to take her home and not pursue inpatient [facility] evaluation. DISCHARGE MEDICATIONS: Lasix 40 daily, Clayton 10 b.i.d. p.r.n., Imdur 60 daily, metoprolol 25 b.i.d., Zofran p.r.n., Klor-Con 10 daily, Protonix 20 b.i.d., which I may bump up to 40 b.i.d., Synthroid 88 daily, VESIcare 10 daily, lactulose 30 daily as needed for bowel movement, MiraLAX 17 g daily, and Ranexa. DISCHARGE CONDITION: Stable. FOLLOW UP: Encourage to follow up with her PCP. If her agitation is an issue, [facility] re- evaluation may be appropriate. We will pursue and follow up with her PCP, who is not listed. She has seen Dr. Arroyo in the past. We will continue to follow. cc: Juancho Barahona MD
== END 2018-06-24 14:45 | disposition home or self-care (01) | DRG 303 ==
LOC: P.ED 15:21 → P.MEDSURG 21:08 → INTOOBSV 21:08
PROVIDERS: ATTEND Internal Medicine
CPT/HCPCS: 70450; 71020; 71046; 74019; 74020; 74176; 78582; 80048; 80053; 80076; 81001; 82140; 82306; 82550; 82607; 82746; 82948; 83036; 83690; 83735; 83880; 84443; 84484; 85025; 85379; 85610; 85730; 86140; 86592; 87088; 93005; 93306; 93970; 94761; 96374; 99285; A9270; A9539; A9540; J0696; J2405; J3486; J7030; J7506; J7512; S0028; XXXXX

== ENCOUNTER 2018-10-17 11:03 | Day surgery (SDC) ==
[2018-10-17] MEDS ORDERED: QUELICIN (DOSE) ONE (11:10)
[2018-10-17] MEDS ORDERED: DIPRIVAN 1% ONE (11:14)
[2018-10-17] MEDS ORDERED: SUFENTA ONE (11:17)
[2018-10-17] MEDS ORDERED: LR 500 ML ONE (11:28)
[2018-10-17] MEDS ORDERED: KEFZOL 1 GM/D5W 1 GM/50 ML IVPB ONE (11:29)
[2018-10-17] MEDS ORDERED: NEOSPORIN G.U. IRRIGANT ONE (11:48)
[2018-10-17] MEDS ORDERED: MARCAINE 0.25% PF ONE (11:48)
[2018-10-17] MEDS ORDERED: NAROPIN 0.5% ONE (12:21)
[2018-10-17] MEDS ORDERED: VERSED ONE (12:22)
--- NOTE | 2018-10-17 13:57 | OPERATIVE NOTE ---
PROCEDURE DATE: 10/17/2018 PREOPERATIVE DIAGNOSIS: Right displaced intra-articular distal radial fracture. POSTOPERATIVE DIAGNOSIS: Right displaced intra-articular distal radial fracture. PROCEDURE PERFORMED: Open reduction and internal fixation of right distal radial fracture. SURGEON: Perez Dickerson MD. PLEATER: LELAND Peña who was necessary for proper retraction and manipulation during the case. ANESTHESIA: Regional with supraclavicular block. IV FLUIDS: 100 mL of lactated Ringer's. ESTIMATED BLOOD LOSS: 5 mL. TOURNIQUET TIME: 35 minutes at 250 mmHg. COMPLICATIONS: None. INDICATION: The patient is a pleasant, 88-year-old female who is status post fall on 10/12/2018, injuring her right distal radius. She felt immediate pain and discomfort, and x-rays revealed a right displaced distal radial fracture. Recommendation to proceed with open reduction and internal fixation was offered. Risks and benefits of surgery were explained, including the risks of anesthesia, , bleeding, infection, failure to relieve pain, postoperative stiffness, nerve injury, blood clots, and other imponderables. All questions were answered. Patient and family wished to proceed with surgery. DETAILS OF OPERATION: After obtaining a regional with a supraclavicular block in the preoperative holding area per anesthesia, she was transferred to the operating room. She was placed supine on the operating table. Right upper extremity was subsequently prepped and draped in the usual sterile fashion. An Esmarch was used to exsanguinate the right upper extremity and the tourniquet was inflated to 250 mmHg. Attention was turned to the volar aspect of the wrist. A small longitudinal incision was made and a volar approach to Jovany was performed. The incision was carried down through the subcutaneous tissue. The interval between the brachioradialis and the flexor carpi radialis was developed. The radial artery was retracted radially. The pronator quadratus was elevated from the radial aspect and retracted ulnarly. The fracture site was then identified. Fingertrap traction was then applied. It had good alignment confirmed with C-arm visualization. A Synthes volar column distal radial locking plate was then placed. Bicortical screws were placed proximal to fracture site. While maintaining adequate positioning, distal locking screws were then placed. Had good alignment of the fracture and good position of the hardware. A second locking screw was placed proximal to the fracture site before finishing all the locking pegs because of inadequate purchase with the first one. After placing remaining all locking pegs distally, the first bicortical screw was exchanged for a locking screw at the proximal fracture site. A third locking screw was placed in the proximal aspect of the plate. Final C-arm visualization confirmed good alignment of the fracture and good position of the hardware. The wound was copiously irrigated. Then 2-0 Vicryl was used to repair the subcutaneous tissue and 4-0 nylon was used to close the skin in an interrupted fashion. Adaptic, sterile 4 x 4's, Webril, and an Jair wrap were applied to the right upper extremity. The patient tolerated the procedure well and was transferred to the recovery room in stable condition. cc: Perez Dickerson MD MTDD
[2018-10-17] MEDS ORDERED: MORPHINE ONE (14:34)
[2018-10-17] MEDS ORDERED: NORCO-7.5 PO PRN (15:28)
[2018-10-17] MEDS ORDERED: NORCO-10 PO PRN ×2 (15:29→17:04)
[2018-10-17] MEDS: NORCO-5 PO PRN ×2 (17:36→23:29)
[2018-10-17] MEDS: PERIDEX MT SCH (20:52)
[2018-10-17] MEDS: PROTONIX PO SCH (20:52)
[2018-10-17] MEDS: RANEXA PO SCH (20:52)
[2018-10-17] MEDS: LOPRESSOR PO SCH (20:52)
[2018-10-17] MEDS ORDERED: VESICARE PO SCH (21:00)
[2018-10-18 03:16] LABS: URINE SOURCE CLEAN CATCH
[2018-10-18 03:22] LABS: BILIRUBIN URINE NEGATIVE (NEGATIVE); BLOOD URINE NEGATIVE (NEGATIVE); COLOR YELLOW; GLUCOSE URINE NEGATIVE (NEGATIVE); KETONE URINE TRACE mg/dL (NEGATIVE); LEUKOCYTES URINE SMALL (NEGATIVE); NITRITE URINE NEGATIVE (NEGATIVE); PH URINE 6.5; PROTEIN URINE TRACE mg/dL (NEGATIVE); SP GRAVITY URINE 1.014; TURBIDITY URINE CLEAR (CLEAR); UROBILINOGEN URINE NORMAL (NORMAL)
[2018-10-18 03:23] LABS: UR EPITHELIAL CELLS <10 /HPF (<10); URINE BACTERIA NEGATIVE /HPF; URINE RBC <10 /HPF (<10)
--- NOTE | 2018-10-18 06:49 | ORTHOPAEDICS PROGRESS NOTE ---
DATE: 10/18/2018 SUBJECTIVE: The patient is a pleasant 88-year-old female who is 1 day status post open reduction internal fixation right distal radial fracture. She is currently resting comfortably. PHYSICAL EXAMINATION: The patient's right upper extremity dressing is intact. She has expected swelling. She is able to flex and extend all of her fingers. She is neurovascularly distally.Vital signs: Stable. She is 99% O2 saturation on room air, blood pressure is 124/62 and pulse is 79. IMPRESSION: Postoperative day #1 status post open reduction internal fixation right distal radius. PLAN: At this point, will plan on discharging the patient home. She will follow up in the office in 10 to 12 days. cc: Perez Dickerson MD
[2018-10-18] MEDS: PERIDEX MT SCH (07:36)
[2018-10-18] MEDS: NORCO-5 PO PRN (07:36)
[2018-10-18] MEDS: LOPRESSOR PO SCH (07:37)
[2018-10-18] MEDS: RANEXA PO SCH (07:37)
[2018-10-18] MEDS: PROTONIX PO SCH (07:38)
[2018-10-18 08:01] VITALS: BP 173/65
[2018-10-18] MEDS ORDERED: SYNTHROID PO SCH (09:00)
[2018-10-18] MEDS ORDERED: LASIX PO SCH (09:00)
[2018-10-18] MEDS ORDERED: IMDUR PO SCH (09:00)
[2018-10-18] MEDS ORDERED: KLOR-CON PO SCH (09:00)
== END 2018-10-18 10:31 | disposition home or self-care (01) ==
LOC: 4N 11:03 → PAT 11:03
PROVIDERS: ATTEND Orthopaedic Surgery Adult Reconstructive Orthopaedic Surgery

== ENCOUNTER 2019-01-10 21:40 | Inpatient (IN) ==
--- NOTE | 2019-01-10 22:22 | PROVIDER DOCUMENTATION ---
This chart was entered by Oral Petit Scribe, acting as scribe for Ranjit Corado MD. HPI-Abdominal Pain/GI Problem - General Chief Complaint: Vomiting Stated Complaint: VOMITING Time Seen by Provider: 01/10/19 21:45 Source: patient, EMS (b) Allergies/Adverse Reactions: Patient Allergies Allergy/AdvReac Type Severity Reaction Status Date / Time Iodinated Contrast Media Allergy Intermediate ITCHING Verified 10/17/18 11:47 Home Medications: Home Medication List Medication Instructions Recorded Confirmed Last Taken Type Isosorbide Mononitrate E.r. [Imdur] 60 mg PO QAM 09/23/15 10/16/18 10/17/18 07:30 History Levothyroxine Sodium [Synthroid] 88 mcg PO DAILY 02/23/18 10/16/18 10/17/18 07:30 History Metoprolol Tartrate 25 mg PO BID 02/23/18 10/16/18 10/17/18 07:30 History Solifenacin Succinate [Vesicare] 10 mg PO HS 02/23/18 10/17/18 10/16/18 History Furosemide 40 mg PO DAILY 06/21/18 10/16/18 10/17/18 07:30 History Hydrocodone/Acetaminophen 1 ea PO TID PRN 06/21/18 10/16/18 10/17/18 07:30 History [Hydrocodone-Acetamin 10-325 mg] Potassium Chloride 10 meq PO DAILY 06/21/18 10/16/18 10/17/18 07:30 History Pantoprazole Sodium [Protonix] 40 mg PO BID #60 06/24/18 10/16/18 10/17/18 07:30 Rx Ranolazine E.r. [Ranexa] 500 mg PO BID 10/16/18 10/16/18 10/17/18 07:30 History Hydrocodone/Acetaminophen [Fleming 1 ea PO Q6H PRN #30 tab 10/18/18 Unknown Rx 7.5-325 Tablet] - History of Present Illness-ABD Nature of Presenting Problems: Pt is a 88 yof who presents to the ED via EMS with a CC of vomiting. EMS reports the pt lives in a care facility and states they were called because the pt was throwing up coffee-ground emesis. Pt reports she did not each breakfast or lunch today and states she ate very little dinner before vomiting. Pt is a very poor historian and does not hear well. Quality of Pain: reports: none Severity in ED: reports: mild Onset/Duration: reports: 1-3 hours ago Timing: reports: still present Associated Symptoms: reports: vomiting Dark Stools Present?: reports: none noticed Rectal Bleeding: reports: none Rectal Pain: reports: none # of Vomiting Episodes: 1 Emesis Description: reports: coffee grounds Bruising or Bleeding Gums?: No Similar Symptoms Previously?: No Recently seen or treated by another doctor?: No Review of Systems - Adult - REVIEW OF SYSTEMS - ADULT ROS:: limited per condition Constitutional: reports: see HPI Eyes: reports: no symptoms reported Ears, Nose, Mouth & Throat: reports: no symptoms reported Cardiovascular: reports: no symptoms reported Respiratory: reports: no symptoms reported Gastrointestinal: reports: see HPI, vomiting Genitourinary: reports: no symptoms reported Musculoskeletal: reports: no symptoms reported Integumentary: reports: no symptoms reported Neurological: reports: no symptoms reported Psychiatric: reports: no symptoms reported Endocrine: reports: no symptoms reported Hematologic/Lymphatic: reports: no symptoms reported Allergic/Immunologic: reports: no symptoms reported All Other Systems: Reviewed and Negative Past History - Adult - PAST MEDICAL HISTORY-ADULT Review of Records: reports: Old Records Reviewed, Nursing Assessment Review, Medications Reviewed, Social history reviewed & non-contributory. Major Childhood Illnesses: reports: denies history Cardiovascular: reports: CAD, CHF, HTN, hyperlipidemia Respiratory: reports: asthma, COPD Gastrointestinal: reports: cancer (colon) Obstetrical/Gynecological: reports: denies history Genitourinary: reports: denies history Musculoskeletal: reports: denies history Neurological: reports: denies history Endocrine/Immune: reports: Diabetes, thyroid disorder (hypothyroid) Other Conditions: reports: denies history - PRIOR SURGERIES/PROCEDURES Surgical/Procedure History: reports: appendectomy, CABG, cholecystectomy, cardiac stent, hysterectomy, back/neck (back sx), gastric bypass, other (open heart) - IMMUNIZATION STATUS Childhood Immunizations: See Nurse Assessment Flu Vaccine: See Nurse Assessment - FAMILY HISTORY Family History: reviewed, not pertinent - SOCIAL HISTORY Smoking: denies, non-smoker Substance Use: none/never, denies Alcohol Use Frequency: never Physical Exam-General - PHYSICAL EXAM-ADULT Initial Vital Signs Reviewed: Yes - CONSTITUTIONAL General Appearance: alert, mild distress - EYES Eyes: PERRL/EOMI, pink conjunctivae - HEAD, EARS, NOSE, MOUTH & THROAT HENMT: normocephalic/atraumatic, moist mucous membranes - NECK Neck: non-tender, full range of motion - RESPIRATORY Respiratory: chest non-tender, lungs clear, normal breath sounds - CARDIOVASCULAR Cardiovascular: normal peripheral pulses, regular rate, rhythm, no edema - GASTROINTESTINAL (ABDOMEN) Abdominal Exam: non tender, soft - GENITOURINARY Rectal Exam: normal rectal tone Hemoccult Exam: heme negative stool (light soft brown stool) - MUSCULOSKELETAL Extremity: normal range of motion, non-tender - SKIN Integumentary: normal color, warm/dry - NEUROLOGIC Neurologic: grossly normal, no motor/sensory deficits - PSYCHIATRIC Psych/Mental Status: normal mood/affect, normal thought content, normal thought process, oriented x 3 Progress - PLAN OF CARE/RESULTS Result Diagrams: 01/10/19 22:14 01/10/19 22:10 - CONSULTS/PCP/HOSPITALIST Notification #1 *Consult/PCP/Hospitalist*: Dr. Oseguera Time Discussed: 00:30 Consult Disposition: Admit Departure - Departure Date of Disposition Decision: 01/11/19 Time of Disposition Decision: 00:31 DIAGNOSIS: Hematemesis Qualifiers: Nausea presence: with nausea Qualified Code(s): K92.0 - Hematemesis Disposition: HOME 01 Certified Medical Emergency: Emergent Condition: Stable Additional Instructions: ED Follow Up Instructions: You have been treated by a care provider in the Emergency Department. These instructions are being provided to you so you can have an understanding of how to care for yourself upon discharge. Upon discharge from the Emergency Department, you are responsible for making arrangements for follow-up care by a physician of your choice. Take all prescribed medications as directed. Return to the Emergency Department immediately for any new or worsening symptoms. You may call the Physician Referral phone number at [phone] to obtain a list of Physicians who are taking new patients. Referrals and Follow-Ups: None,PCP [Primary Care Provider] - - Critical Care Note This patient required my direct & personal management of CC.: No Attestation - Physician/ KOMAL Attestation Patient care was provided by Advanced Practice Provider:: No The physician spent face to face time with patient:: Yes Advanced Practice Provider documentation review:: Supervising physician onsite and consulted in the evaluation and care of this patient. The physician did have a face to face encounter with the patient. This chart was documented by the indicated scribe, (Oral Petit, Kulwant) and accurately reflects the services I performed and decisions made by me, Ranjit Corado MD, as attested by the provider's signature.
[2019-01-10] MEDS ORDERED: ZOFRAN IV ONE (22:33)
[2019-01-10 22:38] LABS: BASO# 0.01 X1000 (0.0-0.2); BASO% 0.2 % (0.0-0.8); EOS# 0.18 X1000 (0.0-0.7); EOS% 2.9 % (0.0-10.0); HEMATOCRIT 36.4 % (37.0-47.0); HEMOGLOBIN 11.4 g/dL (12.0-16.0); LYMPH% 28.8 % (20.5-51.1); MCH 31.1 PG (27-31); MCHC 31.3 g/dL (33-37); MCV 99.5 FL (81-99); MONO# 0.63 X1000 (0.11-0.59); MONO% 10.1 % (1.7-9.3); MPV 10.4 FL (7.4-10.4); NEUT# 3.63 X1000 (1.4-6.5); PLT 243 X1000 (130-400); RBC 3.66 XMIL (4.2-5.4); RDW 14.4 % (11.5-14.5); WBC 6.25 X1000 (4.8-10.8)
[2019-01-10 23:02] LABS: INR 1.05; PROTIME 13.8 Seconds (11.0-16.0)
[2019-01-10 23:11] LABS: ALBUMIN 3.3 g/dL (3.5-5.0); CREATININE 1.3 mg/dL (0.5-0.9); POTASSIUM 3.9 mmol/L (3.5-5.1); TOTAL BILIRUBIN 0.51 mg/dL (0.20-1.00); TOTAL PROTEIN 6.7 g/dL (6.3-8.3)
[2019-01-10] MEDS ORDERED: PROTONIX IV ONE (23:59)
[2019-01-10] MEDS ORDERED: SODIUM CHLORIDE 0.9% INJ ONE (23:59)
[2019-01-11] MEDS ORDERED: ZOFRAN IV PRN (03:05)
[2019-01-11] MEDS ORDERED: SODIUM CHLORIDE 0.9% INJ ONE (03:05)
[2019-01-11] MEDS ORDERED: PROTONIX IV SCH (03:15)
[2019-01-11] MEDS: NS 1,000 ML IV SCH (04:24)
--- NOTE | 2019-01-11 06:01 | Diag Imaging Result Doc PS360 ---
EXAM: ABDOMEN FLAT/UPRIGHT HISTORY: vomiting TECHNIQUE: Two views COMPARISON: 06/22/2018 FINDINGS: Mild scoliosis with degenerative spine changes. There are surgical clips and sutures scattered throughout the abdomen. There is a large amount of stool throughout the colon. The bowel loops are not dilated. No organomegaly. Marked atherosclerosis. IMPRESSION: Prominent constipation. Electronically signed by Meño Saavedra 01/11/2019 5:59 AM
[2019-01-11] MEDS ORDERED: DUONEB (A & A) INH PRN (06:20)
[2019-01-11 06:35] LABS: HEMATOCRIT 35.9 % (37.0-47.0); HEMOGLOBIN 11.2 g/dL (12.0-16.0)
--- NOTE | 2019-01-11 06:38 | Diag Imaging Result Doc PS360 ---
CT ABDOMEN/PELVIS W/O CONTRAST - 01/10/2019 INDICATION: nausea and vomiting COMPARISON: 06/24/2018 FINDINGS: The lung bases are clear and the heart size is normal. Stable surgical changes to the stomach. There is rather severe, diffuse constipation. No bowel obstruction or inflammation. No free air or free fluid. Uterus is absent. Urinary bladder and rectum are normal. Stable left hip stabilization rere. Stable displaced fracture of the pubic rami on the left. No acute fractures. IMPRESSION: Severe constipation. This exam was performed using automated exposure control, adjustment of mA or kV according to patient size, and/or use of iterative reconstruction technique Electronically signed by Dhaval Chen 01/11/2019 6:36 AM
--- NOTE | 2019-01-11 06:52 | HISTORY AND PHYSICAL ---
CHIEF COMPLAINT: Coffee-grounds emesis. HISTORY OF PRESENT ILLNESS: Ms. Kelly Sanchez is an 88-year-old female, who comes from a nursing facility. She has a history of coronary artery disease, diabetes mellitus, hypothyroidism, history of colon cancer, hypertension, hyperlipidemia, COPD, congestive heart failure, and she presented to the hospital because of coffee-ground vomitus. Patient is hard of hearing and not a good historian. The patient denies any abdominal pain. No diarrhea or constipation. CT scan of the abdomen and pelvis done at time of presentation with official report still pending. Hematocrit at time of presentation was 36.4. She has now been admitted to the floor for further management. PAST MEDICAL HISTORY: Coronary disease, diabetes mellitus, hypothyroidism, history of colon cancer, hypertension, hyperlipidemia, congestive heart failure, COPD, allergic rhinitis, history of overactive bladder, vitamin D deficiency, chronic back pain. PAST SURGICAL HISTORY: Appendectomy, cholecystectomy, hysterectomy, gastric bypass surgery, CABG with stents, back surgeries, left hip surgery. SOCIAL HISTORY: No history of cigarette smoking. No alcohol or drug use. ALLERGIES: Allergic to iodinated contrast dye. MEDICATIONS: 1. Imdur 60 mg p.o. daily. 2. Levothyroxine 88 mcg p.o. daily. 3. Metoprolol 25 mg p.o. twice a day. 4. VESIcare 10 mg p.o. at bedtime. 5. Lasix 40 mg p.o. daily. 6. Hydrocodone/acetaminophen 10/325, 3 times a day p.r.n. 7. Potassium chloride 10 mEq p.o. daily. 8. Pantoprazole 40 mg p.o. twice a day. 9. Ranexa 500 mg p.o. twice a day. 10. Hydrocodone/acetaminophen 7.5/325 every 6 hours p.r.n. REVIEW OF SYSTEMS: Limited. The patient denies any fever, cough, dysuria, joint pains, depression. She does admits to having headaches, chest pain, skin lesion and she has diabetes as well as hypothyroidism. EXAMINATION: Vital Signs Are As Follows: Temperature 98.5 degrees, pulse 107, respiratory 17, blood pressure is 131/56, O2 saturation 92%. HEENT: Atraumatic, anicteric. Extraocular is intact. No oral lesions noted. Neck: No lymphadenopathy or thyromegaly. Cardiovascular: S1, S2. Respiratory: Has evidence of good entry bilaterally. Abdomen: Soft, nontender. No masses felt. Extremities: No evidence of significant edema. Central nervous system: No obvious focal deficit noted. LABORATORY DATA: WBC 6.25, hematocrit is 36.4, with a platelet count of 243,000. INR is 1.05. Sodium is 137, potassium 3.9, chloride is 99, bicarb is 27, BUN is 18, creatinine is 1.3. Abdominal x-ray shows evidence of prominent constipation. ASSESSMENT AND PLAN: 1. Gastrointestinal bleed. We will maintain patient on proton pump inhibitor. Monitor all hemoglobin and hematocrit. Transfuse packed red blood cells as needed. Consult with GI. Follow up on official report of the CT scan of the abdomen and pelvis. 2. Fecal impaction. We will maintain patient on stool softener as well as laxative. The patient may require an enema. 3. Diabetes mellitus. Place patient on sliding scale insulin. Monitor blood sugar levels. Check hemoglobin A1c level. 4. Hypothyroidism. Continue levothyroxine. Check thyroid function test. 5. Coronary artery disease. Asymptomatic. 6. Congestive heart failure. Stable. Diuretics as needed. 7. COPD. Nebulized bronchodilators as needed. 8. Chronic back pain. Analgesic as needed. 9. Deep vein thrombosis prophylaxis. Sequential compression devices. cc: Valdo Oseguera MD
--- NOTE | 2019-01-11 06:54 | HISTORY AND PHYSICAL ---
ADDENDUM: The patient is noted to be anemic and as such, we will initiate anemia workup. We will check serum iron, TIBC, ferritin, B12, as well as folic levels. The patient also has slight renal impairment. We will follow up on the patient's renal function while receiving intravenous fluids. cc: Valdo Oseguera MD
[2019-01-11] MEDS: DULCOLAX PR SCH ×2 (10:07→21:59)
[2019-01-11] MEDS: RANEXA PO SCH ×2 (10:10→21:58)
[2019-01-11] MEDS: MIRALAX PO SCH (10:10)
[2019-01-11] MEDS: SYNTHROID PO SCH (10:11)
[2019-01-11] MEDS ORDERED: DIPRIVAN 1% ONE (11:26)
--- NOTE | 2019-01-11 11:50 | ENDOSCOPY OPERATIVE NOTE ---
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 PROCEDURE PERFORMED: EGD w/ biopsy MEDICATIONS: Per Anesthesia TOPICAL ANESTHETIC: none CONSENT: The patient understands the risks and benefits of the procedure and understands that these r isks include, but are not limited to: sedation, allergic reaction, infection, perforation and/or bleeding. Alternative means of evaluation and treatment include, among others: physical exam, x-rays, and/or surgical intervention. The patient elects to proceed with this endoscopic procedure. HISORY AND PHYSICAL: 01/11/2019 DESCRIPTION OF PROCEDURE: During intra-op preparation period all mechanical and medical equipment was checked for proper function. Hand hygiene and appropriate measures for infection prevention was taken. After the risks, benefits and alternatives of the procedure were thoroughly explained, Informed consent was verified, confirmed and timeout was successfully executed by the treatment team. The patient was anesthetized with topical anesthesia and the PW70-a30 ([id number]) endoscope was introduced through the mouth and advanced to the second portion of the duoden um. Retroflexion was performed in the stomach and revealed no abnormalities. The gastroscope was then slowly withdraw n and removed. ESOPHAGUS: A scant amount of retained fecalunt-appearing contents found in the distal esophagus, whic h was dilated displayed decreased motility suggestive of motility disorder. GEJ was located at 35cm from incisors . Esophagitis was found in the distal esophagus. Esophagitis was LA Class A: One or more mucosal breaks < 5 mm in maxi mal length. A biopsy was performed using cold forceps. Sample sent for histology. STOMACH: Multiple erosions were found in the cardia and gastric antrum. A biopsy was performed using cold forceps in the gastric antrum. Sample sent for histology. Scant retained gastric contents found in the gastri c body. DUODENUM: The duodenum was normal. SPECIMENS REMOVED: Yes ADVERSE EVENTS: There were no complications. POSTOPERATIVE DIAGNOSIS: 1. A scant amount of retained fecalunt-appearing contents found in the distal esophagus, which was dilated displayed decreased motility suggestive of motility disorder 2. Esophagitis in the distal esophagus; biopsy was performed 3. Multiple erosions were found in the cardia and gastric antrum; a biopsy was performed 4. Scant retained gastric contents found in the gastric body 5. The duodenum was normal 6. No signs of upper GI bleeding RECOMMENDATIONS: 1. Await biopsy results 2. Transition PPI to PO once daily Continue antiemetics prn Advance diet as tolerated Avoid NSAIDs REPEAT EXAM: Antoni Nelson MD eSigned: Antoni Nelson MD 01/11/2019 11:49 AM cc: PATIENT NAME: Kelly Sanchez I MR#: [id number]
--- NOTE | 2019-01-11 14:45 | GASTROENTEROLOGY CONSULTATION ---
DATE: 01/11/2019 REASON FOR CONSULT: GI bleed. HISTORY OF PRESENT ILLNESS: Ms. Sanchez an 88-year-old female, resident of a shelter, with history of coronary artery disease, diabetes, hypertension, history of colon cancer, hypothyroidism, hyperlipidemia, COPD, congestive heart failure, presented to the ER last night with complaints of vomiting coffee-grounds emesis. The patient is hard of hearing and was not able to answer questions appropriately, her son was at the bedside and he was able to provide some brief information about his mother. He did mention that she threw up twice last night. He further stated that she had stomach surgery 40 years back and [address] Gibson had done an EGD with biopsies. He also said that she had ulcerative esophagitis. Patient was in the hospital last year and was admitted in the ICU with a broken femur and pelvis, and also had a broken arm repaired. CT of the abdomen was done yesterday and it showed that she had severe constipation. Abdominal x-ray showed it was prominent constipation. The patient has denied any nausea, vomiting, or abdominal pain today. PAST MEDICAL HISTORY: History of colon cancer, diabetes, coronary artery disease, hypothyroidism, hyperlipidemia, hypertension, congestive heart failure, COPD, vitamin D deficiency, chronic back pain and history of overactive bladder. PAST SURGICAL HISTORY: Appendectomy, hysterectomy, gastric bypass, cholecystectomy, CABG with stents, multiple back surgeries, hip surgery and right wrist surgery. ALLERGIES: She is allergic iodine contrast dye. SOCIAL HISTORY: Currently is a resident of the shelter. Has denied any alcohol, tobacco, or illicit drug use. HOME MEDICATIONS: The patient's home medications are Imdur 60 mg daily a.m., Synthroid 88 mcg p.o. daily, metoprolol tartrate 25 mg p.o. twice a day, VESIcare 10 mg at bedtime. Furosemide 40 mg daily, potassium chloride 10 mEq daily. Protonix 40 mg twice a day, Ranexa 500 mg twice a day, and hydrocodone/acetaminophen 7.5/325 one tablets every 6 hours as needed for pain. REVIEW OF SYSTEMS: As per HPI. It was difficult to gather detailed information from the patient. PHYSICAL EXAMINATION: Vital Signs: Temperature 98 degrees, pulse 84, respirations 20, blood pressure 187/83, oxygen saturation 98% on room air. The patient's weight is 140 pounds. BMI is 25.6 kg/m2. General: She is alert, oriented x2, not a good historian. HEENT: Hard of hearing, Pale conjunctivae. No icterus. PERRL. Neck: Supple. Lungs: Clear to auscultation in the anterior escobar. Cardiovascular: Regular rate and rhythm. Abdomen: Soft, nontender, nondistended. No guarding or rebound tenderness noted. Extremities: No clubbing, no cyanosis, no edema. Pedal pulses 2+ present. Neurologic: Alert, oriented x2, nonfocal. Cranial nerves 2-12 grossly intact. Hard of hearing. LABORATORY DATA: WBC 6.25, RBC 3.66, hemoglobin 11.2, hematocrit 35.9, platelet count is 242,000. Sodium 137, potassium 3.8, chloride 99, carbon dioxide is 27, anion gap 11, BUN 18, creatinine 1.3, glucose 131, calcium 9.50, total bilirubin 0.51, AST 1.4, ALT 7, and alkaline phos 79, and albumin 3.3. Occult blood was negative. IMPRESSION: 1. Gastrointestinal bleed. 2. Fecal impaction. 3. Nausea/vomiting 4. Coronary artery disease with stents. 5. Chronic obstructive pulmonary disease. 6. Chronic back pain. 7. Congestive heart failure. 8. History of Colorectal cancer 9. Diabetes. PLAN: Dr. Nelson performed an EGD today, in the esophagus there was scant amount of retained fecalunt appearing contents in the distal esophagus which was dilated, esophagitis, biopsy was taken. Stomach findings was multiple erosion in the cardia and gastric antrum, biopsy was taken. Duodenum was normal. No signs of upper GI bleed noted. Awaiting the results of the biopsies. Patient is on clear liquid diet and will advance as tolerated. She is receiving normal saline at 75 mL/h. We will transition her from IV to PO Protonix 40 mg once a day. For her bowel regimen, she is on Dulcolax 10 mg suppository twice a day and MiraLAX 17 grams PO. daily. She is receiving antiemetic Zofran 4 mg Q 4 hours as needed for her nausea and vomiting. Patient's H & H is 11.2 and 35.9, We will continue to monitor her CBC, BMP and follow the plan of care per PCP. This plan was discussed with Dr. Nelson. Thank you for your consult. Please call us for any questions or concerns. Dictated by LELAND Alejandre for Antoni Nelson MD Physician Attestation I have seen and examined the patient. I have discussed and reviewed the the note by Valeri HA and agree with findings and plan as documented. In brief, Ms. Kelly Sanchez is a 88 year old woman admitted with N/V, and coffee ground emesis found to have esophagitis, gastritis, and gastric erosions. Biopsies obtained of esophagus and stomach. H/H stable. Recommend PPI, bowel regimen, and antiemetics prn. Will follow with you. MTDD
[2019-01-11 19:59] LABS: HEMOGLOBIN 11.5 g/dL (12.0-16.0)
[2019-01-12] MEDS: PROTONIX PO SCH (06:27)
[2019-01-12 07:27] LABS: BASO# 0.02 X1000 (0.0-0.2); BASO% 0.4 % (0.0-0.8); EOS# 0.19 X1000 (0.0-0.7); EOS% 4.1 % (0.0-10.0); HEMATOCRIT 36.5 % (37.0-47.0); HEMOGLOBIN 11.2 g/dL (12.0-16.0); LYMPH# 1.37 X1000 (1.2-3.4); LYMPH% 29.4 % (20.5-51.1); MCH 30.7 PG (27-31); MCHC 30.7 g/dL (33-37); MONO# 0.47 X1000 (0.11-0.59); MONO% 10.1 % (1.7-9.3); MPV 10.2 FL (7.4-10.4); NEUT# 2.61 X1000 (1.4-6.5); PLT 219 X1000 (130-400); RBC 3.65 XMIL (4.2-5.4); RDW 14.4 % (11.5-14.5); WBC 4.66 X1000 (4.8-10.8)
[2019-01-12 07:59] LABS: ALBUMIN 2.9 g/dL (3.5-5.0); CALCIUM 8.4 mg/dL (8.8-10.2); PHOSPHORUS 2.7 mg/dL (2.7-4.5); POTASSIUM 3.9 mmol/L (3.5-5.1)
[2019-01-12 08:21] LABS: IRON SATURATION 17 %; TIBC 288 ug/dL; TOTAL IRON 49 ug/dL (49-151); UNBOUND IRON 239 ug/dL (112-346)
[2019-01-12 08:40] LABS: FERRITIN 40 ng/mL (13-150)
[2019-01-12] MEDS: MIRALAX PO SCH (09:51)
[2019-01-12] MEDS: RANEXA PO SCH ×2 (09:53→22:13)
[2019-01-12] MEDS: DULCOLAX PR SCH ×2 (09:53→22:13)
[2019-01-12] MEDS: PERIDEX MT SCH ×2 (09:53→22:13)
[2019-01-12] MEDS: SYNTHROID PO SCH (09:54)
--- NOTE | 2019-01-12 12:44 | PROGRESS NOTE ---
DATE: 01/12/2019 SUBJECTIVE: The patient reports feeling fine. She is very hard of hearing. Denies any black stools. OBJECTIVE: Vital Signs: Temperature 98.7 degrees, heart rate 63, respiratory rate 18, blood pressure 142/88, O2 saturation 98% on room air. General Examination: This is an 88-year-old female lying in bed, in no acute distress. Cardiovascular: S1, S2 heard. No murmurs, gallops, or rubs. Regular rate and rhythm. Respiratory: Clear bilaterally to auscultation. No work of breathing or using accessory muscles. Abdomen: Soft, nontender to palpation. Bowel sounds present. No organomegaly. Extremities: No clubbing, cyanosis, or edema. Peripheral pulses present in both legs. Neurologic: The patient is alert and oriented x3. Moves all 4 extremities. LABORATORY DATA: Reviewed and hemoglobin is stable. ASSESSMENT AND PLAN: 1. GI bleeding/melena. The endoscopy performed yesterday described esophagitis, and multiple erosions were found in the cardia and gastric antrum. The duodenum was normal, and no signs of upper gastrointestinal bleeding. With hemoglobin that is stable, I think overall she is stable from that standpoint. 2. Fecal impaction. We will continue with stool softeners. 3. Diabetes mellitus, type 2. We will continue with sliding scale insulin, and Accu-Chek before meals and also at bedtime. 4. Hypothyroidism. We will continue with home doses of levothyroxine. 5. Coronary artery disease is stable. We will continue to monitor. 6. Congestive heart failure. The patient is not in exacerbation. We will continue to monitor the patient closely. 7. Disposition. We want to discharge this patient but we know that this patient lives in a custodial so we will wait until Monday in order to do that. cc: Guerrero Villela MD
[2019-01-12 18:38] LABS: URINE SOURCE CLEAN CATCH
[2019-01-12 18:49] LABS: BILIRUBIN URINE NEGATIVE (NEGATIVE); BLOOD URINE NEGATIVE (NEGATIVE); COLOR YELLOW; GLUCOSE URINE NEGATIVE (NEGATIVE); KETONE URINE NEGATIVE (NEGATIVE); LEUKOCYTES URINE SMALL (NEGATIVE); NITRITE URINE NEGATIVE (NEGATIVE); PH URINE 6.5; PROTEIN URINE NEGATIVE (NEGATIVE); SP GRAVITY URINE 1.012; TURBIDITY URINE CLEAR (CLEAR); UROBILINOGEN URINE NORMAL (NORMAL)
[2019-01-12 18:50] LABS: UR EPITHELIAL CELLS <10 /HPF (<10); URINE BACTERIA NEGATIVE /HPF; URINE RBC <10 /HPF (<10)
[2019-01-12] MEDS: NS 1,000 ML IV SCH (19:31)
[2019-01-12 20:36] LABS: HEMATOCRIT 36.2 % (37.0-47.0); HEMOGLOBIN 11.2 g/dL (12.0-16.0)
[2019-01-13 06:59] LABS: BASO# 0.01 X1000 (0.0-0.2); BASO% 0.3 % (0.0-0.8); EOS# 0.16 X1000 (0.0-0.7); EOS% 4.6 % (0.0-10.0); HEMOGLOBIN 13.9 g/dL (12.0-16.0); LYMPH% 28.9 % (20.5-51.1); MCHC 32.3 g/dL (33-37); MCV 98.9 FL (81-99); MONO# 0.51 X1000 (0.11-0.59); MONO% 14.7 % (1.7-9.3); MPV 10.3 FL (7.4-10.4); NEUT# 1.78 X1000 (1.4-6.5); NEUT% 51.5 % (42.2-75.2); PLT 185 X1000 (130-400); RBC 4.35 XMIL (4.2-5.4); RDW 14.5 % (11.5-14.5); WBC 3.46 X1000 (4.8-10.8)
[2019-01-13 07:27] LABS: CALCIUM 8.6 mg/dL (8.8-10.2); CREATININE 1.1 mg/dL (0.5-0.9); PHOSPHORUS 2.5 mg/dL (2.7-4.5); POTASSIUM 3.7 mmol/L (3.5-5.1)
[2019-01-13] MEDS: PROTONIX PO SCH (07:54)
--- NOTE | 2019-01-13 08:10 | PROGRESS NOTE ---
DATE: 01/13/2019 SUBJECTIVE: The patient reports feeling fine. She is very hard of hearing. No acute issues noted as per nursing staff overnight. OBJECTIVE: Vital Signs: Temperature 98.1 degrees, heart rate 82, respiratory rate 20, blood pressure 135/59, O2 saturation 100% on room air. General: This is an 88-year-old female, lying in bed in no acute distress. Cardiovascular: S1, S2 heard. No murmurs, gallops, or rubs. Regular rate and rhythm. Respiratory: Clear bilaterally to auscultation. No work of breathing or using accessory muscles. Abdomen: Soft, nontender to palpation. Bowel sounds present. No organomegaly. Extremities: No clubbing, cyanosis, or edema. Peripheral pulses present in both legs. Neurological: The patient has dementia and gets confused sometimes. Moves all 4 extremities spontaneously. LABORATORY DATA: Reviewed. ASSESSMENT AND PLAN: 1. Gastrointestinal bleeding/melena. The patient has been seen by Gastroenterology, and endoscopy has been performed, which basically described esophagitis and multiple lesions in the cardia and the gastric antrum. Hemoglobin is actually much better in comparing with yesterday. She did not require any blood transfusion. There are no signs of gastrointestinal bleeding. I think this patient is stable from that standpoint. 2. Fecal impaction. Will continue with stool softeners. 3. Diabetes mellitus type 2. Will continue with sliding scale insulin and Accu-Cheks before meals and also at bedtime. 4. Hypothyroidism. Will continue with home doses of levothyroxine. 5. Coronary artery disease. The patient is stable, not complaining of any chest pain. 6. Congestive heart failure. The patient is not in any exacerbation. Will continue home medications. 7. Disposition. The patient lives in a assisted, so considering that this gastrointestinal bleeding was ruled out and her hemoglobin is stable, I think she should be discharged tomorrow. cc: Guerrero Villela MD
[2019-01-13] MEDS: MIRALAX PO SCH (09:22)
[2019-01-13] MEDS: DULCOLAX PR SCH ×3 (09:23→23:10)
[2019-01-13] MEDS: PERIDEX MT SCH ×2 (09:23→20:38)
[2019-01-13] MEDS: RANEXA PO SCH ×2 (09:23→20:38)
[2019-01-13] MEDS: SYNTHROID PO SCH (09:24)
[2019-01-13] MEDS: NS 1,000 ML IV SCH (12:24)
[2019-01-14] MEDS: NS 1,000 ML IV SCH (07:48)
[2019-01-14 07:58] LABS: BASO# 0.01 X1000 (0.0-0.2); BASO% 0.3 % (0.0-0.8); EOS# 0.23 X1000 (0.0-0.7); EOS% 6.5 % (0.0-10.0); HEMATOCRIT 35.8 % (37.0-47.0); LYMPH# 1.15 X1000 (1.2-3.4); LYMPH% 32.5 % (20.5-51.1); MCH 30.5 PG (27-31); MCHC 30.7 g/dL (33-37); MCV 99.2 FL (81-99); MONO# 0.48 X1000 (0.11-0.59); MONO% 13.6 % (1.7-9.3); MPV 10.4 FL (7.4-10.4); NEUT# 1.67 X1000 (1.4-6.5); NEUT% 47.1 % (42.2-75.2); PLT 234 X1000 (130-400); RBC 3.61 XMIL (4.2-5.4); RDW 14.6 % (11.5-14.5); WBC 3.54 X1000 (4.8-10.8)
[2019-01-14 08:00] LABS: ALBUMIN 2.9 g/dL (3.5-5.0); CALCIUM 8.8 mg/dL (8.8-10.2); CREATININE 1.1 mg/dL (0.5-0.9); PHOSPHORUS 2.5 mg/dL (2.7-4.5); POTASSIUM 3.8 mmol/L (3.5-5.1)
[2019-01-14] MEDS ORDERED: PROTONIX PO SCH (09:00)
[2019-01-14] MEDS: MIRALAX PO SCH (10:30)
[2019-01-14] MEDS: PERIDEX MT SCH (10:30)
[2019-01-14] MEDS: SYNTHROID PO SCH (10:31)
[2019-01-14] MEDS: RANEXA PO SCH (10:31)
[2019-01-14] MEDS: DULCOLAX PR SCH (10:31)
[2019-01-14 11:30] VITALS: BP 138/89
--- NOTE | 2019-01-14 11:57 | DISCHARGE SUMMARY ---
ADMISSION DATE: 01/11/2019 DISCHARGE DATE: 01/14/2019 ADMISSION DIAGNOSES: 1. Gastrointestinal bleed. 2. Fecal impaction. 3. Diabetes mellitus type 2. 4. Hypothyroidism. 5. Coronary artery disease. 6. Congestive heart failure. 7. Chronic obstructive pulmonary disease 8. Chronic back pain. 9. Anemia. 10. Acute kidney injury. DISCHARGE DIAGNOSES: 1. Gastrointestinal bleeding and melena now which describes esophagitis, multiple lesions in the cardia and the gastric antrum with improved hemoglobin. 2. Fecal impaction resolving. 3. Diabetes mellitus type 2, stable. 4. Hypothyroidism, stable. 5. Coronary artery disease. 6. Congestive heart failure, no exacerbation. 7. Acute kidney injury, resolved. CONSULTATIONS: Dr. Nelson of Gastroenterology. SURGERIES AND PROCEDURES: EGD performed by Dr. Nelson on 01/11/2019, with results of what appears to have been a mild distal esophagus stricture with dilatation and decreased motility suggesting motility disorder. It also showed esophagitis of the distal esophagus with biopsy, showed multiple erosions in the cardia and gastric antrum with biopsy, and duodenum was normal and there were no signs of GI bleeding. HOSPITAL COURSE: Ms. Kelly Sanchez is an 88-year-old female who comes from [facility] with history of CAD, diabetes, hypothyroidism, colon cancer, hypertension, hyperlipidemia, COPD, CHF with complaints of coffee-grounds emesis. She is hard of hearing and a poor historian. She denied any abdominal pain. There was no diarrhea or constipation. CT of the abdomen and pelvis revealed severe constipation and she was transferred to the medical floor. Workup for anemia was completed and Gastroenterology was consulted. On 01/11/2019, Dr. Nelson performed endoscopy, which revealed a little bit of esophageal stricture and was dilated and there was some decreased motility, which suggested a motility disorder. It also showed esophagitis of the distal esophagus, biopsy was sent. There were multiple erosions in the cardia and the gastric antrum, a biopsy was sent of that. The duodenum was normal and there were no signs of upper GI bleed and the recommendation was to await for biopsy results and transition the proton pump inhibitor to p.o. to continue the antiemetics as needed, to advance diet as tolerated, and avoid NSAIDs. She never received any blood while she was here. The hemoglobin and hematocrit remained stable. She did have a little bit of a mild acute kidney injury, but IV fluid hydration resolved that. Some malnutrition also noted. Otherwise, stable for discharge. Even the occult stool was negative for blood. DISCHARGE VITAL SIGNS: Temperature 98.2 degrees, heart rate 79, respiratory rate 16, blood pressure 135/65, O2 saturation 100% on room air. DISCHARGE LAB DATA: White blood cells 3000, hemoglobin 11, hematocrit 35, platelet count 234,000. Sodium 142, potassium 3.8, BUN 12, creatinine is 1.1, glucose is 112, calcium 8.8, phosphorus is 2.5, and albumin is 2.9. IMAGING: On 01/10/2019, abdominal x-ray, prominent constipation, abdominal pelvic CT severe constipation. The pathology biopsy of the gastric cancer on the esophageal biopsy is all pending. DISCHARGE DIET: Regular diet. DISCHARGE ACTIVITY: As tolerated. DISCHARGE PHYSICIAN FOLLOWUP: Dr. Nelson. DISCHARGE INSTRUCTIONS: If her condition changes, contact her physician and/or return to the emergency department. Changes may include, but are not limited to shortness of breath, increased fatigue, excessive bleeding, unexplained weight loss or gain, unmanageable pain, signs or symptoms of infection. If there is fever of 101 or above, shortness of breath, chest pain, vomiting of blood, coffee-ground appearing material or blood in the stool, please seek medical attention. DISCHARGE MEDICATIONS: 1. Lasix 40 mg p.o. daily. 2. Imdur 60 mg p.o. daily. 3. Metoprolol tartrate 25 mg p.o. twice daily. 4. Potassium chloride 10 mEq p.o. daily. 5. Ranexa 500 mg p.o. twice daily. 6. Synthroid 88 mcg p.o. daily. 7. VESIcare 10 mg p.o. nightly. 8. [place] 7.5, one tab p.o. every 6 hours p.r.n. 9. Protonix 40 mg p.o. twice daily. DISCHARGE DISPOSITION: [facility]. Dictated by LELAND Galvan for Juancho Barahona MD cc: LELAND Galvan MD
[2019-01-14] MEDS ORDERED: NEUTRA-PHOS PO SCH (13:00)
--- NOTE | 2019-01-14 13:14 | GASTROENTEROLOGY PROGRESS NOTE ---
DATE: 01/14/2019 SUBJECTIVE: Ms. Sanchez is an 88-year-old female sitting in a chair, having her breakfast, her son was at the bedside. The patient is hard of hearing. She has denied any nausea, vomiting, abdominal pain, or diarrhea and was ready to go home. OBJECTIVE: Vital Signs: Temperature 98.2 degrees, pulse 124, respirations 18, blood pressure 135/65, oxygen saturation is 94% on room air. Her weight is 140 pounds. BMI is 25.6 kg/m2. General: She is alert, oriented x3, hard of hearing, and in no acute distress. HEENT: Pale conjunctivae. No icterus. PERRL. Hard of hearing. Neck: Supple. Lungs: Clear to auscultation in the anterior escobar. Cardiovascular: The patient is tachycardic. Abdomen: Soft, nontender, nondistended. No guarding or rebound tenderness noted. Extremities: No clubbing, no cyanosis, no edema. Pedal pulses 2+ present bilaterally. Neurologic: Alert, oriented x3, hard of hearing. LABORATORY DATA: WBCs 3.54, RBC 3.61, hemoglobin 11.0, hematocrit 35.8, platelet count is 234,000. Sodium 142, potassium 3.8, chloride 106, carbon dioxide 24, anion gap 12, BUN 12, creatinine 1.1, glucose 112, calcium 8.8, phosphorus 2.5, albumin is 2.9. IMPRESSION: 1. Coffee ground emesis. 2. Gastritis. 3. Nausea and vomiting. 4. Esophagitis 5. Chronic obstructive pulmonary disease. 6. Anemia 7. Congestive heart failure. 8. History of colorectal cancer. 9. Diabetes. 10.Coronary artery disease with stents PLAN: An EGD was done on Monday, and in the esophagus it showed a scant amount of retained feculent- appearing contents in the distal esophagus, which was dilated, Esophagitis, biopsies were taken. Stomach finding was multiple erosions in the cardia and the gastric antrum. Biopsies were taken. Duodenum was normal. No signs of upper GI bleed noted. Awaiting the results of the biopsy. The patient is on a regular diet, and she is able to tolerate her diet well. The patient denied any nausea, vomiting, or any blood in the vomit. She is receiving IV fluids, normal saline at 75 mL/hr. She is on GI prophylaxis Protonix 40 mg p.o. daily for her GI bleed. For bowel regimen she is getting Dulcolax twice a day and MiraLAX daily, Antiemetic Zofran for nausea and vomiting. Her H & H is 11.0 & 35.8. We will continue to monitor the patient's CBC, BMP, and follow the plan of care per PCP. This plan was discussed with Dr. Warner. Please call us for any further questions or concerns. Dictated by LELAND Alejandre for Micah Warner MD cc: Micah Warner MD I have seen and examined the patient myself and I agree with the above plan of care. I have discussed the above plan of care with the patient and all questions were answered. Please call us with any further questions. [email or web address]
--- NOTE | 2019-01-15 11:26 | DISCHARGE SUMMARY ---
ADMISSION DATE: 01/11/2019 DISCHARGE DATE: 01/14/2019 She was seen the day of discharge. She is doing well. No major complaints. There was question of GI bleed, but nothing had been substantiated. She did have gastritis, and some erosive lesions. She will be discharged back to rehab residential today, and we will see how she does. This is a 32 minute discharge with LELAND Galvan having done the full discharge summary. Medications were reviewed by myself which the newest one is Protonix. cc: Juancho Barahona MD
== END 2019-01-14 12:32 | DRG 392 ==
LOC: ED 21:40 → SUATTDRO 01-11 03:47 → 4N 01-11 03:47
PROVIDERS: ATTEND Internal Medicine